=== PATIENT | male | born 1945 | race Caucasian/White ===

== ENCOUNTER 2020-06-01 11:13 | Observation (INO) | payer OTHER ==
[~2020-06-01] VITALS: Ht 172.7 cm; Wt 90.7 kg
[2020-06-01 12:08] LABS: BASOPHILS ABSOLUTE AUTO 0.02 K/mm3 (0.00-0.23); BASOPHILS PERCENT AUTO 0 % (0-2); EOSINOPHILS ABSOLUTE AUTO 0.02 K/mm3 (0.00-0.68); EOSINOPHILS PERCENT AUTO 0 % (0-6); Hematocrit 53.3 % (37.0-53.0); Hemoglobin 18.4 g/dL (13.5-17.5); IMMATURE GRAN ABSOLUTE AUTO 0.04 K/mm3 (0.00-0.10); IMMATURE GRAN PERCENT AUTO 0 % (0-1); LYMPHOCYTES ABSOLUTE AUTO 1.22 K/mm3 (0.84-5.20); LYMPHOCYTES PERCENT AUTO 10 % (21-46); MONOCYTES PERCENT AUTO 7 % (4-13); Mean Corpuscular HGB Conc 34.5 g/dL (31.5-36.5); Mean Corpuscular Volume 90 fL (80-100); Mean Platelet Volume 9.8 fL (9.1-12.4); NEUTROPHILS PERCENT AUTO 82 % (41-73); Platelet Count 222 K/mm3 (150-400); RDW Coefficient Variation 13.1 % (11.7-14.2); RDW Standard Deviation 42.7 fL (35.1-46.3); Red Blood Cell Count 5.94 M/mm3 (4.30-5.90)
[2020-06-01 12:37] LABS: Alanine Aminotransfer (ALT/SGP 33 U/L (12-78); Albumin, Blood 3.5 g/dL (3.4-5.0); Albumin/Globulin Ratio 0.9 (0.8-1.8); Alk Phos 72 U/L (50-136); Anion Gap 6 mmol/L (6-16); Aspartate Aminotrans (AST/SGOT 25 U/L (12-37); Bilirubin, Total 0.6 mg/dL (0.1-1.0); Blood Urea Nitrogen 22 mg/dL (8-24); Bun/Creatinine Ratio 21.4 (12.0-20.0); CO2, Blood 25 mmol/L (21-32); Calcium, Blood 8.9 mg/dL (8.5-10.1); Chloride, Blood 105 mmol/L (98-108); Creatinine, Blood 1.03 mg/dL (0.60-1.20); Globulin, Blood 3.9 g/dL (2.2-4.0); Glomerular Filtration Rate >60 (60-); Glucose, Blood 92 mg/dL (70-99); Potassium, Blood 4.5 mmol/L (3.5-5.5); Sodium, Blood 136 mmol/L (136-145); Total Protein, Blood 7.4 g/dL (6.4-8.2); Troponin I <0.015 ng/mL (0.000-0.040)
--- NOTE | 2020-06-01 22:38 | NUR ---
ADMISSION: PATIENT IS RECIEVED FROM ER VIA STRETCHER. SBA TO THE BED, STEADY GAIT BUT SLOW. VSS, NO COMPLIANTS OF PAIN. PATIENT IS ORIENTED TO ROOM AND CALL SIMMONS. BED ALARM IS ON FOR SAFETY.
[2020-06-02 05:38] LABS: BASOPHILS ABSOLUTE AUTO 0.02 K/mm3 (0.00-0.23); BASOPHILS PERCENT AUTO 0 % (0-2); EOSINOPHILS PERCENT AUTO 1 % (0-6); Hemoglobin 17.2 g/dL (13.5-17.5); IMMATURE GRAN ABSOLUTE AUTO 0.03 K/mm3 (0.00-0.10); IMMATURE GRAN PERCENT AUTO 0 % (0-1); LYMPHOCYTES ABSOLUTE AUTO 1.35 K/mm3 (0.84-5.20); LYMPHOCYTES PERCENT AUTO 17 % (21-46); MONOCYTES ABSOLUTE AUTO 0.85 K/mm3 (0.16-1.47); MONOCYTES PERCENT AUTO 10 % (4-13); Mean Corpuscular HGB Conc 33.7 g/dL (31.5-36.5); Mean Corpuscular Volume 89 fL (80-100); Mean Platelet Volume 10.2 fL (9.1-12.4); NEUTROPHILS ABSOLUTE AUTO 5.83 K/mm3 (1.96-9.15); NEUTROPHILS PERCENT AUTO 71 % (41-73); Platelet Count 202 K/mm3 (150-400); RDW Coefficient Variation 13.1 % (11.7-14.2); RDW Standard Deviation 42.8 fL (35.1-46.3); Red Blood Cell Count 5.74 M/mm3 (4.30-5.90); White Blood Cell Count 8.18 K/mm3 (4.00-11.30)
[2020-06-02 06:17] LABS: Anion Gap 7 mmol/L (6-16); Blood Urea Nitrogen 18 mg/dL (8-24); Bun/Creatinine Ratio 18.5 (12.0-20.0); CHOL/HDL RATIO 4.7; CO2, Blood 25 mmol/L (21-32); Calcium, Blood 8.7 mg/dL (8.5-10.1); Chloride, Blood 108 mmol/L (98-108); Cholesterol 226 mg/dL (50-200); Creatinine, Blood 0.97 mg/dL (0.60-1.20); Glomerular Filtration Rate >60 (60-); Glucose, Blood 87 mg/dL (70-99); HDL Cholesterol 48 mg/dL (>39); LDL/HDL RATIO 3.2; Low Density Lipoprotein Chol 154 mg/dL (0-110); Potassium, Blood 3.8 mmol/L (3.5-5.5); Sodium, Blood 140 mmol/L (136-145); Triglycerides 121 mg/dL (30-160); Very Low Density Lipoprot Chol 24 mg/dL (6-32)
--- NOTE | 2020-06-02 06:30 | NUR ---
SHIFT SUMMARY: A&OX4, NO CONFUSION OR FORGETFULNESS OBSERVED. VSS WITH A LOW GRADE TEMP. OF 99.1 OBSERVED. PATIENT REPORTED RIGHT TEMPORAL HEAD ACHE, 3/10 GOING UP TO 6/10 WITH COUGH. TYLENOL WAS GIVEN WITH GOOD EFFECT. LEFT HAND IT QUALITY ANALYST HAS SOME WEAKNESS. UP TO THE BATHROOM WITH SBA, STEADY GAIT OBSERVED. BED ALARM IS ON FOR SAFETY. MRI SCREENING WAS COMPLETED AND FAXED. TELETRY WAS NRS WITH A BBB WITH RATES IN THE 80'S.
--- NOTE | 2020-06-02 10:44 | NUR ---
Echocardiogram using 9.0ml of agitated saline contrast performed.
[2020-06-02] MEDS ORDERED: ASPI81CH PO (17:39)
[2020-06-02] MEDS ORDERED: Aspir 8181 MG PO (17:41)
[2020-06-02] MEDS ORDERED: ATOR40TA PO (17:42)
[2020-06-02] MEDS ORDERED: CLOP75 PO (17:43)
[2020-06-02] MEDS ORDERED: METO25ER PO (17:45)
--- NOTE | 2020-06-02 18:33 | NUR ---
DISCHARGE PT DISCHARGED TO HOME. THIS RN EXPLAINED DISCHARGE INSTRUCTIONS AND MEDICATIONS TO PT AND HE REPORTS HE UNDERSTANDS. IV REMOVED WITHOUT DIFFICULTY. BELONGINGS WITH PT. PT TRANSFERRED TO PRIVATE VEHICLE VIA WHEELCHAIR.
== END 2020-06-02 18:40 | disposition home or self-care (01) ==
LOC: ER 11:13 → MEDS 11:14 → ER 16:20 → MEDS 22:18
PROVIDERS: Emergency Medicine; Nurse Practitioner Acute Care; ADMIT Internal Medicine
DX: I63.9 Cerebral infarction, unspecified (principal); G81.94 Hemiplegia, unspecified affecting left nondominant side; I99.8 Other disorder of circulatory system; I65.21 Occlusion and stenosis of right carotid artery; E78.5 Hyperlipidemia, unspecified; J44.9 Chronic obstructive pulmonary disease, unspecified; R03.0 Elevated blood-pressure reading, without diagnosis of hypertension; F17.220 Nicotine dependence, chewing tobacco, uncomplicated; Z88.1 Allergy status to other antibiotic agents; Z88.5 Allergy status to narcotic agent
CPT/HCPCS: 36415; 70450; 70544; 70549; 71045; 72125; 80048; 80053; 80061; 84484; 85025; 92610; 93005; 93010; 93306; 97116; 97161; 99285-25; A9270; A9579; G0378

== ENCOUNTER 2020-10-28 19:34 | Inpatient (IN) | payer OTHER ==
[~2020-10-28] VITALS: Ht 182.9 cm; Wt 89.5 kg
[~2020-10-28 19:34] MED LIST: ASPI81CH PO; ATOR40TA PO; Aspir 8181 MG PO; CLOP75 PO; METO25ER PO
[2020-10-28 20:04] LABS: BASOPHILS ABSOLUTE AUTO 0.01 K/mm3 (0.00-0.23); BASOPHILS PERCENT AUTO 0 % (0-2); EOSINOPHILS PERCENT AUTO 0 % (0-6); Hematocrit 47.4 % (37.0-53.0); Hemoglobin 16.1 g/dL (13.5-17.5); IMMATURE GRAN ABSOLUTE AUTO 0.02 K/mm3 (0.00-0.10); IMMATURE GRAN PERCENT AUTO 0 % (0-1); LYMPHOCYTES ABSOLUTE AUTO 0.79 K/mm3 (0.84-5.20); LYMPHOCYTES PERCENT AUTO 16 % (21-46); MONOCYTES ABSOLUTE AUTO 0.62 K/mm3 (0.16-1.47); MONOCYTES PERCENT AUTO 12 % (4-13); Mean Corpuscular HGB 30.7 pg (26.0-34.0); Mean Corpuscular Volume 90 fL (80-100); Mean Platelet Volume 10.3 fL (9.1-12.4); NEUTROPHILS PERCENT AUTO 71 % (41-73); Platelet Count 111 K/mm3 (150-400); RDW Coefficient Variation 13.7 % (11.7-14.2); RDW Standard Deviation 45.5 fL (35.1-46.3); Red Blood Cell Count 5.25 M/mm3 (4.30-5.90); White Blood Cell Count 5.04 K/mm3 (4.00-11.30)
[2020-10-28 20:21] LABS: Alanine Aminotransfer (ALT/SGP 51 U/L (12-78); Albumin, Blood 2.8 g/dL (3.4-5.0); Albumin/Globulin Ratio 0.8 (0.8-1.8); Alk Phos 49 U/L (50-136); Anion Gap 5 mmol/L (6-16); Aspartate Aminotrans (AST/SGOT 62 U/L (12-37); Bilirubin, Total 0.5 mg/dL (0.1-1.0); Blood Urea Nitrogen 19 mg/dL (8-24); Bun/Creatinine Ratio 17.4 (12.0-20.0); CO2, Blood 24 mmol/L (21-32); Calcium, Blood 7.4 mg/dL (8.5-10.1); Chloride, Blood 104 mmol/L (98-108); Creatinine, Blood 1.09 mg/dL (0.60-1.20); Globulin, Blood 3.4 g/dL (2.2-4.0); Glomerular Filtration Rate >60 (60-); Glucose, Blood 101 mg/dL (70-99); Potassium, Blood 4.2 mmol/L (3.5-5.5); Sodium, Blood 133 mmol/L (136-145); Total Protein, Blood 6.2 g/dL (6.4-8.2)
[2020-10-28 23:26] LABS: Ferritin, Serum 244 ng/mL (26-388); Lactate Dehydrogenase (Ld),Bld 318 U/L (100-240)
--- NOTE | 2020-10-29 01:16 | NUR ---
PATIENT IS A NEW ADMIT FROM THE ED. AXOX 4 AND ONE ASSIST TRANSFER FROM [facility] TO BED. ON 3L O2 NC FROM ED AND ROOM AIR BASELINE. IV REMDESIVIR INFUSING. TEMP 98.6 DOWN FROM 101.0 IN ED. TYLENOL 1,000 MG GIVEN IN ED. PATIENT ORIENTED TO ROOM AND CALL LIGHT SYSTEM. DENIES CHEST PAIN AND N/V. REPORTS WANTING TO SLEEP AFTER ASSESSMENT COMPLETE. CALL LIGHT IN REACH.
--- NOTE | 2020-10-29 03:48 | NUR ---
SHIFT SUMMARY PATIENT HAD NO ACUTE CHANGES OBSERVED. AXOX 4 AND SBA TO BATHROOM. SOB WITH EXERTION. ON 2L O2 NC AND ROOM AIR BASELINE. DENIES CHEST PAIN AND N/V. PIV REMAINS INTACT. VSS/AFEBRILE. TAKES MEDICATION WHOLE WITH WATER. COOPERATIVE WITH CARE. CALL LIGHT IN REACH. BED IN LOWEST POSITION. WILL CONTINUE TO MONITOR UNTIL DAY SHIFT NURSE ASSUMES CARE.
[2020-10-29 04:47] LABS: BASOPHILS ABSOLUTE AUTO 0.01 K/mm3 (0.00-0.23); BASOPHILS PERCENT AUTO 0 % (0-2); EOSINOPHILS PERCENT AUTO 0 % (0-6); Hematocrit 49.8 % (37.0-53.0); Hemoglobin 16.8 g/dL (13.5-17.5); IMMATURE GRAN ABSOLUTE AUTO 0.02 K/mm3 (0.00-0.10); IMMATURE GRAN PERCENT AUTO 0 % (0-1); LYMPHOCYTES ABSOLUTE AUTO 0.49 K/mm3 (0.84-5.20); LYMPHOCYTES PERCENT AUTO 9 % (21-46); MONOCYTES ABSOLUTE AUTO 0.28 K/mm3 (0.16-1.47); MONOCYTES PERCENT AUTO 5 % (4-13); Mean Corpuscular HGB 30.5 pg (26.0-34.0); Mean Corpuscular HGB Conc 33.7 g/dL (31.5-36.5); Mean Corpuscular Volume 90 fL (80-100); Mean Platelet Volume 10.3 fL (9.1-12.4); NEUTROPHILS ABSOLUTE AUTO 4.75 K/mm3 (1.96-9.15); NEUTROPHILS PERCENT AUTO 86 % (41-73); Platelet Count 113 K/mm3 (150-400); RDW Coefficient Variation 13.7 % (11.7-14.2); RDW Standard Deviation 46.1 fL (35.1-46.3); Red Blood Cell Count 5.51 M/mm3 (4.30-5.90); White Blood Cell Count 5.55 K/mm3 (4.00-11.30)
[2020-10-29 05:07] LABS: Alanine Aminotransfer (ALT/SGP 59 U/L (12-78); Albumin, Blood 2.8 g/dL (3.4-5.0); Albumin/Globulin Ratio 0.8 (0.8-1.8); Alk Phos 50 U/L (50-136); Anion Gap 8 mmol/L (6-16); Aspartate Aminotrans (AST/SGOT 61 U/L (12-37); Bilirubin, Total 0.5 mg/dL (0.1-1.0); Blood Urea Nitrogen 20 mg/dL (8-24); CO2, Blood 23 mmol/L (21-32); Calcium, Blood 7.7 mg/dL (8.5-10.1); Chloride, Blood 103 mmol/L (98-108); Creatinine, Blood 1.11 mg/dL (0.60-1.20); Globulin, Blood 3.6 g/dL (2.2-4.0); Glomerular Filtration Rate >60 (60-); Glucose, Blood 109 mg/dL (70-99); Sodium, Blood 134 mmol/L (136-145); Total Protein, Blood 6.4 g/dL (6.4-8.2)
--- NOTE | 2020-10-29 18:06 | NUR ---
SHIFT SUMMARY PATIENT DENIES PAIN, NAUSEA, AND SHORTNESS OF BREATH AT REST. PATIENT MAINTAINING OXYGEN SATURATION ABOVE 92% ON 3L/NC. OXYGEN SATURATION DROPS WITH ACTIVITY. OCCASSIONAL COUGH. PATIENT UP TO BR SBA AND USES URINAL AT BEDSIDE. EATING AND DRINKING WELL. PLEASANT AND COOPERATIVE WITH CARE.
--- NOTE | 2020-10-30 07:27 | NUR ---
SHIFT SUMMARY PT IS A 75 Y/O FEMALE, ADMITTED FOR PNA R/T COVID-19. HE IS A&O X 4, 1PA TO THE BSC. NO C/O NAUSEA, PAIN OR SOB. HE IS ON 3L O2 VIA NC, SATTING 88-93%. VITAL SIGNS STABLE. NO ACUTE CHANGES IN PT CONDITION NOTED DURING THE NIGHT. WILL CONTINUE TO MONITOR AND TREAT PER EMAR UNTIL HAND OFF TO DAY SHIFT RN.
[2020-10-30 08:45] LABS: Anion Gap 6 mmol/L (6-16); Blood Urea Nitrogen 28 mg/dL (8-24); CO2, Blood 24 mmol/L (21-32); Calcium, Blood 7.6 mg/dL (8.5-10.1); Chloride, Blood 104 mmol/L (98-108); Glomerular Filtration Rate >60 (60-); Glucose, Blood 86 mg/dL (70-99); Potassium, Blood 4.6 mmol/L (3.5-5.5); Sodium, Blood 134 mmol/L (136-145)
[2020-10-30 09:56] LABS: BASOPHILS ABSOLUTE AUTO 0.01 K/mm3 (0.00-0.23); BASOPHILS PERCENT AUTO 0 % (0-2); EOSINOPHILS PERCENT AUTO 0 % (0-6); Hemoglobin 16.2 g/dL (13.5-17.5); IMMATURE GRAN ABSOLUTE AUTO 0.03 K/mm3 (0.00-0.10); IMMATURE GRAN PERCENT AUTO 0 % (0-1); LYMPHOCYTES ABSOLUTE AUTO 0.82 K/mm3 (0.84-5.20); LYMPHOCYTES PERCENT AUTO 11 % (21-46); MONOCYTES ABSOLUTE AUTO 0.53 K/mm3 (0.16-1.47); MONOCYTES PERCENT AUTO 7 % (4-13); Mean Corpuscular HGB 30.3 pg (26.0-34.0); Mean Corpuscular HGB Conc 33.8 g/dL (31.5-36.5); Mean Corpuscular Volume 90 fL (80-100); Mean Platelet Volume 10.6 fL (9.1-12.4); NEUTROPHILS ABSOLUTE AUTO 6.07 K/mm3 (1.96-9.15); NEUTROPHILS PERCENT AUTO 81 % (41-73); Platelet Count 127 K/mm3 (150-400); RDW Coefficient Variation 13.4 % (11.7-14.2); RDW Standard Deviation 44.6 fL (35.1-46.3); Red Blood Cell Count 5.35 M/mm3 (4.30-5.90); White Blood Cell Count 7.46 K/mm3 (4.00-11.30)
[2020-10-30 10:05] LABS: International Normalized Ratio 1.09; Prothrombin Time Results 11.7 Sec (9.7-11.5)
[2020-10-30 12:34] LABS: Hemoglobin 14.4 g/dL (13.5-17.5)
[2020-10-30 12:47] LABS: Troponin I 0.028 ng/mL (0.000-0.040)
[2020-10-30 12:51] LABS: Bun/Creatinine Ratio 29.3 (12.0-20.0); Creatinine, Blood 1.4 mg/dL (0.60-1.20); Magnesium, Blood 1.9 mg/dL (1.6-2.4); Potassium, Blood 4.8 mmol/L (3.5-5.5)
[2020-10-30 15:58] LABS: Hematocrit 36.7 % (37.0-53.0); Hemoglobin 12.1 g/dL (13.5-17.5)
--- NOTE | 2020-10-30 18:01 | NUR ---
SHIFT SUMMARY PATIENT HAD EPISODE OF HEMATEMESIS THIS MORNING, BRIGHT RED WITH CLOTS. CALL TO DR CORDON INFORM. NEW ORDER FOR ZOFRAN. PATIENT SET OFF BED ALARM IN ATTEMPT TO GET TO BR WITHOUT ASSISTANCE. PATIENT FOUND LYING ON FLOOR. PATIENT HAD EPISODE OF SIZURE LIKE ACTIVITY WHILE ON FLOOR. OUTCOMES MANAGER INITIATED. PATIENT RETURNED TO BED VIA APARNA. PATIENT FOUND TO BE HYPOTENSIVE. SEVERAL BOLUSES ORDERED TO EQUAL 3L PATIENT CONTINUED TO BE HYPOTENSIVE. DR. LANGFORD CONSULTED. PATIENT TO HAVE EGD TODAY. PATIENT LOC CONTINUES TO DECLINE. TRANSFER TO ICU ORDERED.
--- NOTE | 2020-10-30 19:00 | NUR ---
PT ARRIVAL ON UNIT... PT ARRIVED ON UNIT VIA HIS BED, PT LOOKS SLEEPY BUT FOLLOWS DIRECTIONS. PT WAS MOVED OVER TO THE ICU BED BY 4 STAFF. PT WAS ABLE TO FOLLOW DIRECTIONS. PT IS ON 4L NC WITH O2 SATS AT 88-89%, PT'S O2 SATS WERE INCREASED TO 5L O2. L/S DIM AND COARSE T/O. BT PRESENT AND HYPOACTIVE. PT WAS BROUGHT DOWN TO THE ICU D/T DECREASED MENTAL STATUS AND CONTINUED EMISIS OF TARAH RED BLOOD AND CLOTS PER MED FLOOR RN REPORT. PT DENIES ANY CHEST PAIN AT THIS TIME. PT HAS A HARSH, NONPRODUCTIVE COUGH AT THIS TIME. AN ABG WAS OBTAINED BY RT. IV KEPPRA WAS STARTED PER ORDERS. PT'S SKIN IS COOL AND CLAMMY. NO EDEMA NOTED ON ASSESSMENT. PT'S BP IS CURRENTLY STABLE WITH MAPS >70 AT THIS TIME. PROTONIX GTT WAS RESTARTED. LEVOPHED GTT IS ON STAND BY AT THIS TIME. WILL CONTINUE TO MONITOR.
[2020-10-30 19:01] LABS: pH Blood Arterial 7.38 (7.35-7.45)
--- NOTE | 2020-10-30 19:08 | NUR ---
CALL TO FAMILY MESSAGE LEFT FOR SIGNIFICANT OTHER TO CALL BACK FOR UPDATE ON PATIENT STATUS ON NUMBER PROVIDED BY PATIENT. HOME NUMBER LISTED IN PATIENT CONTACTS DISCONNECTED.
--- NOTE | 2020-10-30 19:45 | NUR ---
10/30/201944 Gerda Godinez History, Chart, Medications and Allergies reviewed before start of procedure. Patient confirms NPO status and agrees with scheduled surgery. 3-LEAD EKG REVIEWED WITH PHYSICIAN PRIOR TO START OF PROCEDURE. MONITOR INTACT WITH CONTINUOUS PULSE OXIMETRY AND INTERMITTENT BP. CARE BY FOR MAC SEDATION. SEE PAPER ANESTHESIA RECORD.
--- NOTE | 2020-10-30 19:46 | NUR ---
PT UPDATE... DR. LANGFORD AT THE BEDSIDE FOR CONSENT AND EDG. PT SIGNED CONSENT WITH THIS RN A WITNESS. EDG WAS DONE IN THE ROOM, PER DR. LANGFORD THE PT HAS A LARGE ULCERATED AREA VS CANCER. PT CAN HAVE SOME SIPS OF WATER AND ICE CHIPS, PT IS TO STAY ON THE PROTONIX GTT AND PRESSORS NEEDED. REPORT GIVEN TO ZOFIA SANCHEZ.
--- NOTE | 2020-10-30 20:45 | NUR ---
POST ENDOSCOPIC PROCEDURE, PT IS AWAKE, ALERT & ORIENTED X2. PT IS UNAWARE OF WHAT BROUGHT HIM TO THE ICU OR WHAT PROCEDURE WAS DONE. WAS AT THE BEDSIDE TO EXPLAIN FINDINGS, PT WAS EDUCATED ON PROCEDURE AT THIS TIME. PT UP TO BSC, LARGE BLACK/RED STOOL NOTED, PT TOLERATED TRANSFER WNL, PT ASSISTED BACK INTO BED, VSS AT THIS TIME, 6 L O2 VIA NC, RESP UNLABORED. PROTONIX GTT INFUSING, PT DENIES ANY PAIN, CALL LIGHT IN REACH.
[2020-10-30 22:22] LABS: Hematocrit 36.5 % (37.0-53.0)
[2020-10-31 04:14] LABS: Hematocrit 33.7 % (37.0-53.0); Hemoglobin 11.2 g/dL (13.5-17.5)
--- NOTE | 2020-10-31 04:51 | NUR ---
ATTEMPTED TO PRONE PT AT THIS TIME. HE WAS UNABLE TO TOLERATE TURNING ALL THE WAY TO HIS STOMACH DUE TO LINES/IMMOBILITY. PT IS ON HIS RIGHT SIDE INSTEAD OF FAVORING HIS LEFT. HE WAS SWITCHED FROM THE NON-REBREATHER MASK TO A NC @ 7L, SPO2 REMAINS >93% AT THIS TIME. WCTM. CALL LIGHT IN REACH.
--- NOTE | 2020-10-31 06:29 | NUR ---
SUMMARY PT REMAINS A&O X2. HE IS HAVING INTERMITTENT PERIODS OF CONFUSION. PT IS CURRENTLY ON 7L O2 VIA NC, SPO2 90-94%, PT ATTEMPTS TO REMOVE OXYGEN & MONITORS WHILE CONFUSED. PROTONIX GTT INFUSING @ 10 ML/HR, NS @ 50 ML/HR. BLACK/DARK RED STOOL NOTED THROUGH THE NIGHT, NO TARAH BLOOD NOTED. PT HAS BEEN INCONTINENT, ATTENDS CHANGED PRN. PT CONTINUES TO DENY PAIN. PT ATTEMTED TO USE URINAL ON OCCASION WHILE ALERT. BED ALARM IS ON FOR SAFETY. PT HAS USED CALL LIGHT A FEW TIMES, REMAINS WITHIN REACH. WCTM & REPORT TO DAY RN.
[2020-10-31 10:13] LABS: Hemoglobin 11.4 g/dL (13.5-17.5)
[2020-10-31 10:15] LABS: Hematocrit 34.1 % (37.0-53.0)
--- NOTE | 2020-10-31 10:16 | NUR ---
AM NOTE.... ASSUMED CARE OF PT AT 0700, PT IS A&Ox3 WITH TIMES OF CONFUSION. PT IS COVID + WITH AN UPPER GI BLEED FROM AN ULCER VS MALIGNANCY. PT WAS ON 7L NC WITH 13L NON-REBREATHER DURING THE TIMES HIS O2 SATS DECREASE WITH ACTIVITY. L/S COARSE AND DIM T/O BEING VERY DIM IN THE BASES. PT IS IN SR W/BBB IN THE 70'S, PT'S BP HAS BEEN SOFT WITH SBPs IN THE 80'S-90'S WITH MAPS >60. NO EDEMA NOTED ON ASSESSMENT. BT PRESENT AND HYPERACTIVE, ABD IS SOFT AND NONTENDER TO PALP, PT HAS BEEN HAVING INCONT BLACK/MAROON STOOLS. PT HAS ALSO BEEN INCONT OF URINE. UPON AM ASSESSMENT THE PT'S O2 SATS KEPT DROPPING TO 86-89% RT WAS CALLED AN THE PT WAS PLACED ON THE AIRVO AT 40L AND 55% THIS BROUGHT HIS O2 SATS UP TO >90%. AT 0945 THE PT ATTEMPTED TO GET OUT OF BED AND HIS O2 SATS WENT FROM 94-95% TO 82%, PT'S AIRVO WAS INCREASED FROM 40L AND 55% TO 40L AND 65% TO KEEP O2 SATS >90%. PT HAD AN EPISODE OF URINARY INCONT, PT WAS HELPFUL WITH TURNS BUT HIS O2 SATS STARTED TO DROP WITH ANY TYPE OF MOVEMENT. WILL CONTINUE TO MONITOR.
[2020-10-31 10:56] LABS: Anion Gap 5 mmol/L (6-16); Blood Urea Nitrogen 47 mg/dL (8-24); CO2, Blood 25 mmol/L (21-32); Calcium, Blood 6.6 mg/dL (8.5-10.1); Chloride, Blood 112 mmol/L (98-108); Creatinine, Blood 1.12 mg/dL (0.60-1.20); Glomerular Filtration Rate >60 (60-); Glucose, Blood 98 mg/dL (70-99); Potassium, Blood 4.7 mmol/L (3.5-5.5); Sodium, Blood 142 mmol/L (136-145)
--- NOTE | 2020-10-31 14:03 | NUR ---
PT UPDATE... PT'S BP CONTINUES TO BE SOFT AND TRENDING DOWN, DR. MILNER AND DR. Milner WERE CALLEED AND NOTIFIED OF THE PT'S CONTINUED HYPOTENSION. DR. MILNER AND DR. Milner ASKED FOR AN BODY TRIMMER UPHOLSTERER CONSULT. DR. GARCIA WAS NOTIFIED BY THIS RN. DR. RUIZ AT THE BEDSIDE FOR ASSESMENT, A 1000 MLS BOLUS OF NS WAS ORDERED AND STARTED BY THIS RN. PER DR. GARCIA AN ORDER FOR A PICC LINE WAS PLACED. PT HAS BEEN MOSTLY INCONT OF URINE THIS SHIFT BUT HAS BEEN ABLE TO USE THE URINAL 2 TIMES THIS SHIFT SO FAR. PT CONTINUES TO BE ON THE AIRVO AT 40L AND 72% WITH O2 SATS AT 94%. THE PUBLIC WELFARE DIRECTOR IS AT THE BEDSIDE FOR AN EEG D/T POSSIBLE SEIZURE LIKE ACTIVITY. WILL CONTINUE TO MONITOR.
[2020-10-31 16:10] LABS: Hematocrit 34.7 % (37.0-53.0); Hemoglobin 11.4 g/dL (13.5-17.5)
[2020-10-31 18:10] LABS: Magnesium, Blood 1.9 mg/dL (1.6-2.4); Phosphorus, Blood 2.2 mg/dL (2.5-4.9); Potassium, Blood 4.6 mmol/L (3.5-5.5)
--- NOTE | 2020-10-31 18:47 | NUR ---
SHIFT SUMMARY... NO ACUTE NEGATIVE CHANGES SINCE PREVIOUS NOTE. A PICC LINE WAS PLACED THIS AFTERNOON. PT GOT A 100MLS BOLUS OF NS WHICH IMPROVED HIS BP. PT HAS DENIED ANY N/V THIS SHIFT AND PT HAS NOT HAD ANOTHER BM SINCE 0700 THIS AM. PT HAS BEEN SIPPING WATER T/O THE SHIFT AND TOLERATING THIS WELL. PT HAS BEEN BETTER WITH USING THE URINAL THIS AFTERNOON WITH LESS INCONT EPISODES. PT'S EEG WAS DONE IN THE ROOM, RESULTS PENDING. PT HAS BEEN REFUSING TO TURN WHILE IN THE BED, PT EDUCATED ON THE RISK OF SKIN BREAKDOWN AND PRESSURE ULCERS, PT STATED HIS UNDERSTANDING BUT STILL REFUSED ALL SHIFT. PT'S UPDATED ON THE PT'S CONDITION AND PLAN OF CARE. PT'S AIRVO SETTINGS ARE 40L AND 80% FIO2 WITH O2 SATS >90%, PT CONTINUES TO DESAT WITH ANY MOVEMENT. CALL LIGHT IN REACH WILL CONTINUE TO MONITOR UNTIL REPORT IS GIVEN TO ONCOMING RN.
--- NOTE | 2020-10-31 19:38 | NUR ---
ASSESSMENT/ASSUMED CARE PATIENT LYING IN BED TALKING ON CELL PHONE. ANSWERS QUESTIONS APPROPRIATELY AND DENIES PAIN. DISCUSSED PRONING AND IMPORTANCE OF POSITION CHANGES WITH PATIENT. PATIENT QUESTIONS WHY POSITION CHANGES AND PRONING ARE NEEDED. EDUCATED PATIENT ON DAIGNOSIS OF COVID. PATIENT AGREEABLE TO CHANGING POSITION TO RIGHT SIDE LYING. PATIENT ON AIRVO AT 40L 80% WITH SPO2 >90%, BUT DESATURATES TO 88% WITH ACTIVITY THAT RESOLVES WITH REST. LUNGS ARE CLEAR EXCEPT DIM IN THE BASES WITH PRODUCTIVE COUGH. PICC LINE PATENT AND INFUSING, 18G IN LT FA FLUSHED AND SALINE LOCKED. 20G IN RT WRIST REMOVED AFTER PAINFUL SENSATION WITH SALINE FLUSH; CATHETER IN TACT AND COBAND/GAUZE DRESSING PLACED OVER SITE. CALL LIGHT EXPLAINED TO PATIENT & IN REACH; BEDSIDE TABLE IN REACH.
[2020-10-31 22:33] LABS: Hematocrit 29.2 % (37.0-53.0)
--- NOTE | 2020-11-01 03:11 | NUR ---
V-TACH PT SLEEPING ON LEFT SIDE, HAD RUN OF VTACH UNTIL TURNED PT TO BACK. PT STATES,"YOUR NOT GOING TO LET ME SLEEP TONIGHT ARE YOU?" EXPLAINED THAT PT HAD A RUN OF VTACH. PT STATES,"I DIDN'T FEEL ANYTHING". PT WAS LYING ON LEFT SIDE WITH ARM TIGHTLY CROSSED TO CHEST. PT NOW SINUS IN THE 70'S AFTER REPOSITIONING.
[2020-11-01 03:45] LABS: BASOPHILS PERCENT AUTO 0 % (0-2); EOSINOPHILS PERCENT AUTO 0 % (0-6); Hematocrit 28.4 % (37.0-53.0); Hemoglobin 9.7 g/dL (13.5-17.5); IMMATURE GRAN ABSOLUTE AUTO 0.02 K/mm3 (0.00-0.10); IMMATURE GRAN PERCENT AUTO 0 % (0-1); LYMPHOCYTES ABSOLUTE AUTO 0.59 K/mm3 (0.84-5.20); LYMPHOCYTES PERCENT AUTO 12 % (21-46); MONOCYTES ABSOLUTE AUTO 0.33 K/mm3 (0.16-1.47); MONOCYTES PERCENT AUTO 7 % (4-13); Mean Corpuscular HGB 30.7 pg (26.0-34.0); Mean Corpuscular HGB Conc 34.2 g/dL (31.5-36.5); Mean Corpuscular Volume 90 fL (80-100); Mean Platelet Volume 10.8 fL (9.1-12.4); NEUTROPHILS ABSOLUTE AUTO 4.14 K/mm3 (1.96-9.15); NEUTROPHILS PERCENT AUTO 82 % (41-73); Platelet Count 118 K/mm3 (150-400); RDW Coefficient Variation 13.5 % (11.7-14.2); RDW Standard Deviation 44.5 fL (35.1-46.3); Red Blood Cell Count 3.16 M/mm3 (4.30-5.90); White Blood Cell Count 5.08 K/mm3 (4.00-11.30)
[2020-11-01 04:14] LABS: Anion Gap 5 mmol/L (6-16); Blood Urea Nitrogen 30 mg/dL (8-24); Bun/Creatinine Ratio 35.3 (12.0-20.0); CO2, Blood 24 mmol/L (21-32); Calcium, Blood 6.7 mg/dL (8.5-10.1); Chloride, Blood 111 mmol/L (98-108); Creatinine, Blood 0.85 mg/dL (0.60-1.20); Glomerular Filtration Rate >60 (60-); Glucose, Blood 105 mg/dL (70-99); Sodium, Blood 140 mmol/L (136-145)
[2020-11-01 04:15] LABS: Magnesium, Blood 1.9 mg/dL (1.6-2.4); Phosphorus, Blood 2.9 mg/dL (2.5-4.9)
--- NOTE | 2020-11-01 06:11 | NUR ---
SHIFT SUMMARY PATIENT REMAINED CALM AND COOPERATIVE THROUGHOUT SHIFT. ENCOURAGED FREQUENT REPOSITIONING TO SIDE LYING THAT THE PATIENT WAS AGREEABLE TO; DECLINED PRONING AT THIS TIME. INCREASED OXYGEN NEED THROUGHOUT THE NIGHT; STARTED ON AIRVO 40L 80% THEN INCREASED TO 60L 80% D/T CONSISTENT OXYGEN DESATURATION INTO THE 80'S. PATIENT USED BEDSIDE URINAL FREQUENTLY AND NOTIFIED NURSE WHEN FULL WITH TWO EPISODES OF INCONTINENCE. PATIENT HAD A RUN OF VTACH THAT RESOLVED WHEN TURNED FROM LT SIDE LYING TO OPENED CHEST. REPORTED TO DR. GARCIA; PORTABLE CHEST XR OBTAINED TO CONFIRM PICC PLACEMENT. RT WRIST AND LT FOREARM PERIPHERAL IV'S REMOVED; NOT NEEDED. WILL CONTINUE TO MONITOR UNTIL REPORT GIVEN TO ONCOMING RN.
--- NOTE | 2020-11-01 07:15 | NUR ---
Assumed care of pt at 0700. Report received from Kim SANCHEZ and Yeni RN. Pt lethargic, sleeping. Pt on AirVO with 60 LPM flow. Initially 80% FiO2, but RT stated he decreased it to 65%. SpO2 90% or greater. RR 17. Reportedly, pt refusing proning but allows deep turn repositioning. Currently laying on L side. HR 74, BP stable. Urinal at bedside for pt to void independently. Bed in lowest position. Call light in reach. Pt denies need at this time.
--- NOTE | 2020-11-01 17:07 | NUR ---
SUMMARY At this time, pt is receiving oxygen with AirVO with 60 LPM and 60% FiO2. SpO2 9O% or greater. Pt has had labile oxygen requirements. Desautrates when using urinal or eating/drinking. No BM this shift. SR per monitor. BP stable. Bed in lowest position. Call light in reach. Will continue to closely monitor until care handoff and bedside report with oncoming RN.
--- NOTE | 2020-11-01 21:27 | NUR ---
ASSUMED CARE PATIENT LYING IN BED TALKING ON CELL PHONE TO . BED SIDE TABLE IS WITHIN REACH WITH URINAL AND PERSONAL BELONGINGS. PATIENT APPEARS CALM. PICC LINE INFUSING NS AND PROTONIX WITH 11CM EXPOSED. CHG DRESSING CLEAN, DRY, AND INTACT. PATIENT REPORTS DISCOMFORT AT THE SITE WHEN PRESSURE IS APPLIED. PATIENT REPORTS RLQ PAIN THAT IS CONSTANT AND SHARP, WORSE AFTER EATING RATED AT A 4/10, BUT DENIES NAUSEA/VOMITING/DIARRHEA. DR. GARCIA NOTIFIED OF PAIN AND ORDERS PROVIDED. PATIENT REFUSED TURNING STATING THAT HE WAS COMFORTABLE AT THIS TIME. AIRVO IN PLACE AT 60LPM AND 92%. QUESTIONS REGARDING CAUSE OF RLQ PAIN AND CURRENT PLAN OF CARE ANSWERED WITH PATIENT CONFIRMING UNDERSTANDING.
--- NOTE | 2020-11-02 00:25 | NUR ---
HIGH FLOW O2 RT DECREASED O2 TO 65 LITERS 85%. PT SLEEPING
[2020-11-02 04:09] LABS: BASOPHILS PERCENT AUTO 0 % (0-2); EOSINOPHILS PERCENT AUTO 0 % (0-6); Hemoglobin 9.3 g/dL (13.5-17.5); IMMATURE GRAN ABSOLUTE AUTO 0.02 K/mm3 (0.00-0.10); IMMATURE GRAN PERCENT AUTO 1 % (0-1); LYMPHOCYTES PERCENT AUTO 10 % (21-46); MONOCYTES ABSOLUTE AUTO 0.32 K/mm3 (0.16-1.47); MONOCYTES PERCENT AUTO 8 % (4-13); Mean Corpuscular HGB 30.5 pg (26.0-34.0); Mean Corpuscular HGB Conc 34.4 g/dL (31.5-36.5); Mean Corpuscular Volume 89 fL (80-100); Mean Platelet Volume 10.5 fL (9.1-12.4); NEUTROPHILS ABSOLUTE AUTO 3.13 K/mm3 (1.96-9.15); NEUTROPHILS PERCENT AUTO 81 % (41-73); Platelet Count 135 K/mm3 (150-400); RDW Coefficient Variation 13.3 % (11.7-14.2); RDW Standard Deviation 43.6 fL (35.1-46.3); Red Blood Cell Count 3.05 M/mm3 (4.30-5.90); White Blood Cell Count 3.87 K/mm3 (4.00-11.30)
[2020-11-02 04:24] LABS: Anion Gap 4 mmol/L (6-16); Blood Urea Nitrogen 22 mg/dL (8-24); Bun/Creatinine Ratio 26.9 (12.0-20.0); CO2, Blood 28 mmol/L (21-32); Calcium, Blood 7.2 mg/dL (8.5-10.1); Chloride, Blood 108 mmol/L (98-108); Creatinine, Blood 0.82 mg/dL (0.60-1.20); Glomerular Filtration Rate >60 (60-); Glucose, Blood 121 mg/dL (70-99); Magnesium, Blood 1.9 mg/dL (1.6-2.4); Phosphorus, Blood 2.7 mg/dL (2.5-4.9); Potassium, Blood 4.2 mmol/L (3.5-5.5); Sodium, Blood 140 mmol/L (136-145)
--- NOTE | 2020-11-02 06:20 | NUR ---
SHIFT SUMMARY PATIENT SLEPT THROUGH MOST OF SHIFT AND REPOSITIONED SELF FREQUENTLY. ENCOURAGED SIDE TO SIDE REPOSITIONING D/T PATIENT UNABLE TO PRONE. PATIENT BEGAN DESATTING; CHANGED FROM AIRVO TO V60 HIGH FLOW, SET AT 65L 100% AT HIGHEST, NOW TITRATED DOWN TO 60L 75% TOLERATING WELL WITH SPO2 >90%. PATIENT DESATS WITH EXERTION, REPOSITIONING, TALKING WHICH HE TAKES A PROLONGED AMOUNT OF TIME TO RECOVER. PATIENT MADE APPROPRIATE USE OF CALL LIGHT TO EMPTY URINAL KEPT AT BEDSIDE; ONE EPISODE OF MISSED URINAL OCCURED. PATIENT REMAINED ORIENTED BUT DROWSY, EASILY AROUSABLE FROM SLEEP. PATIENT DENIED NAUSEA, BUT NEWLY REPORTED RLQ PAIN; CONSTANT/SHARP WORSE AFTER MEALS. REPORTED TO DR. GARCIA AND ORDERS OBTAINED FOR FENTANYL IV PRN PAIN. PATIENT DECLINED MEDICATION AT THAT TIME; ORDER STILL ON FILE. WILL CONTINUE TO MONITOR UNTIL REPORT GIVEN TO ONCOMING MEENAFT RN.
--- NOTE | 2020-11-02 07:32 | NUR ---
Assumed care of pt at 0700. report received from Kim SANCHEZ. Pt is A&O x 4. Answers questions. Follows commands. Verbalizes needs. Pleasant and cooperative with care. However lethargic and withdrawn. Sleeps often. Noted that pt's oxygen requirements are improved when pt is sleeping. Initially on V60 high flow therapy with 60 LPM flow and 75% FiO2. SpO2 99%. FiO2 decreased to 65%. SpO2 is 98%. RR 15. SR per monitor, BBB noted. BP stable. Bed in lowest position. Call light in reach. Pt denies need at this time.
--- NOTE | 2020-11-02 13:29 | NUR ---
Update: Pt switched to BiPAP as he was no longer maintaining SpO2 90% or greater with V60 HFT 60 LPM and 100% FiO2. Settings 12/6 and 100% FiO2 helped pt's sats recover. For lunch, pt assisted to sit up in chair. Pt tolerated this activity well with BiPAP on. Trialed switch back to HFT, but pt could not keep SpO2 90% or greater after 5 minutes. Therefore, pt was not able to eat lunch today. Pt remains in chair at this time. BiPAP settings 10/5 and 50% FiO2. SpO2 90% or greater.
--- NOTE | 2020-11-02 18:37 | NUR ---
SUMMARY At this time, pt is wearing V60 HFT cannula in his mouth. 60 LPM and 100% FiO2. Pt is maintaining sats well with cannula in his mouth, where he was not when it was in his nares. Pt states he feels his nose is stuffy. Pt OOB to chair for a few hours today. Tolerates OOB activity well. Voiding into urinal. SR per monitor. BP stable. Will continue to closely monitor until care handoff and bedside report with oncoming RN.
--- NOTE | 2020-11-02 20:05 | NUR ---
SHIFT ASSESSMENT ASSUMED CARE OF PT @ 1900. REPORT RECEIVED FROM VICKIE. PT A&OX4. DURING SHIFT CHANGE, PTS SATS DECREASING TO HIGH 80'S c HI-BERNARDINO NC IN MOUTH DUE TO NOSE BEING CLOGGED. RT NOTIFIED, TRANSITIONED PT TO BIPAP, 03/13 @ 70% c O2 SATS >90%. PT TOLERATING BIPAP WELL AT THIS TIME. PT LETHARGIC, WITHDRAWN, APPEARS DEPRESSED. FOLLOWING COMMANDS, SEPULVEDA. TURNING SELF IN BED, WILL NOT PRONE, SEEMS TO BE FRUSTRATED WITH NURSES INFORMING HIM OF THE IMPORTANCE OF TURNS/ PRONING. DENIES ASSISTANCE FROM NURSE FOR POSITIONING, STATES HE JUST NEEDS TO SLEEP. URINAL ON EACH SIDE OF PT BED WITHIN REACH, PT NOTIFIES STAFF WHEN THEY NEED EMPTIED. CALL LIGHT IN REACH, PT DENIES NEEDS AT THIS TIME.
[2020-11-03 03:41] LABS: BASOPHILS PERCENT AUTO 0 % (0-2); EOSINOPHILS PERCENT AUTO 0 % (0-6); Hemoglobin 9.9 g/dL (13.5-17.5); IMMATURE GRAN ABSOLUTE AUTO 0.03 K/mm3 (0.00-0.10); IMMATURE GRAN PERCENT AUTO 1 % (0-1); LYMPHOCYTES PERCENT AUTO 7 % (21-46); MONOCYTES ABSOLUTE AUTO 0.53 K/mm3 (0.16-1.47); MONOCYTES PERCENT AUTO 9 % (4-13); Mean Corpuscular HGB 30.5 pg (26.0-34.0); Mean Corpuscular HGB Conc 34.1 g/dL (31.5-36.5); Mean Corpuscular Volume 89 fL (80-100); Mean Platelet Volume 10.8 fL (9.1-12.4); NEUTROPHILS ABSOLUTE AUTO 4.98 K/mm3 (1.96-9.15); NEUTROPHILS PERCENT AUTO 84 % (41-73); Platelet Count 171 K/mm3 (150-400); RDW Coefficient Variation 13.1 % (11.7-14.2); RDW Standard Deviation 42.8 fL (35.1-46.3); Red Blood Cell Count 3.25 M/mm3 (4.30-5.90); White Blood Cell Count 5.94 K/mm3 (4.00-11.30)
[2020-11-03 03:59] LABS: Albumin, Blood 2.2 g/dL (3.4-5.0); Anion Gap 3 mmol/L (6-16); Blood Urea Nitrogen 19 mg/dL (8-24); Bun/Creatinine Ratio 23.9 (12.0-20.0); CO2, Blood 28 mmol/L (21-32); Calcium, Blood 7.5 mg/dL (8.5-10.1); Chloride, Blood 107 mmol/L (98-108); Creatinine, Blood 0.79 mg/dL (0.60-1.20); Glomerular Filtration Rate >60 (60-); Glucose, Blood 113 mg/dL (70-99); Phosphorus, Blood 2.4 mg/dL (2.5-4.9); Potassium, Blood 4.2 mmol/L (3.5-5.5); Sodium, Blood 138 mmol/L (136-145)
--- NOTE | 2020-11-03 06:57 | NUR ---
SHIFT SUMMARY PT REMAINS A&OX4, BECAME MORE OUTGOING DURING THE NIGHT BUT C/O DIFFICULTY SLEEPING, SEEMED ANXIOUS. MEDICATED c PRN ATIVAN, PT CURRENTLY RESTING WELL. TOLERATING BIPAP AT THIS TIME. BIPAP-12/8-65% c O2 SATS >90%. PT GIVEN SMALL BREAKS T/O THE NIGHT BUT BECAME SOB RATHER QUICKLY. PT REPOSITIONING SELF, TURNING HARD LEFT/ RIGHT. CONTINUES TO USE URINAL. NO BM THIS SHIFT. CALL LIGHT WITHIN REACH.
--- NOTE | 2020-11-03 09:15 | NUR ---
INITIAL ASSESSMENT PATIENT RESTING WITH EYES CLOSED UPON ENTERING ROOM. PATIENT SLOW TO RESPOND. PATIENT APPEARS LETHARGIC. PATIENT ABLE TO ANSWER ALL ORIENTATION QUESTIONS CORRECTLY, HOWEVER WHEN PATIENT MAKES CONFUSED STATEMENTS AT TIMES, SUCH WHEN NURSE ASKED PATIENT TO BREATH IN THROUGH NOSE AND BREATH OUT THROUGH MOUTH AND PATIENT ANSWERED "HOW DO I KNOW WHICH IS WHICH". PATIENT CALM, COOPERATIVE, FLAT, WITHDRAWN AND DEPRESSED APPEARING. PATIENT AFEBRILE. PATIENT DENIES PAIN. PATIENT WEAK BUT ABLE TO MOVE ALL EXTREMITIES. PATIENT ON BIPAP AT 15/8 AND 65% FIO2. PATIENT TRIALED ON AIRVO AT 60 L AND 100% FIO2, BUT DESATTED DOWN TO 77%. PATIENT STATED THAT NOSE IS A LITTLE CONGESTED, AND WHEN PRONGS PLACED IN MOUTH, PATIENT WOULD BITE DOWN ON. LUNGS DIMINISHED THROUGHOUT. SOB NOTED WITH EXERTION. NONPRODUCTIVE COUGH NOTED. PATIENT IN SR WITH BBB, HR 60S TO 70S. SBP IN THE 90S. NO ACTIVE GI BLEEDING NOTED. LAST BM ON 10/31. PATIENT ON FULL LIQUID DIET BUT UNABLE TO EAT BREAKFAST HAD TO BE PLACED BACK ON BIPAP FOR O2 SATS. PATIENT OCCASIONALLY INCONTINENT. URINAL AT BEDSIDE X 2. SCATTERED BRUISES NOTED. ABRASION NOTED TO R KNEE. PROTONIX INFUSING AT 10 MLS/ HOUR. NS TKO. PATIENT RECEIVING 20 MM SODIUM PHOS FOR PHOS OF 2.4 THIS AM. BED LOW, CALL LIGHT IN REACH. WILL CONTINUE TO MONITOR PATIENT FREQUENTLY THROUGHOUT SHIFT.
--- NOTE | 2020-11-03 11:04 | NUR ---
DR. HERNANDEZ UPDATED ON PATIENT. INFORMED THAT PATIENT WITHDRAWN AND DEPRESSED APPEARING THIS AM. INFORMED THAT PATIENT STATED "THERE ARE THINGS I NEED TO GET DONE AT HOME AND MY CAN'T DRIVE". INFORMED THAT PATIENT PLACED ON AIRVO THIS AM AND THAT SATS DECREASED DOWN TO 77% ON 60 L AND 100% FIO2. INFORMED THAT PATIENT NOT BREATHING IN THROUGH NOSE WHEN INSTRUCTED. PATIENT STATED HIS NOSE WAS "A LITTLE CONGESTED". AIRVO PLACED IN PATIENT'S MOUTH. PATIENT CONTINUED TO BITE DOWN ON EVEN WHEN INSTRUCTED NOT TO. INFORMED THAT PATIENT UNABLE TO EAT BREAKFAST BECAUSE HAD TO GO BACK ON BIPAP. NO ORDERS RECEIVED AT THIS TIME.
--- NOTE | 2020-11-03 12:00 | NUR ---
PATIENT AFEBRILE. NEURO STATUS REMAINS UNCHANGED. PATIENT 1 TO 2 PERSON ASSIST TO CHAIR. PATIENT WATCHING TV. PATIENT SATTING 90% AND GREATER ON AIRVO AT 60 L AND 90% FIO2. HR 80S TO 90S. SBP 130S TO 140S. NO OTHER ACUTE CHANGES TO NOTE ON AT THIS TIME. WILL CONTINUE TO MONITOR.
--- NOTE | 2020-11-03 17:00 | NUR ---
PATIENT NOW ON REGULAR DIET PER DR. LANGFORD. HR 70S TO 80S. SBP LOW 100S TO 130S. NO OTHER ACUTE CHANGES TO NOTE ON AT THIS TIME. WILL CONTINUE TO MONITOR.
--- NOTE | 2020-11-03 19:18 | NUR ---
SHIFT SUMMARY PATIENT REMAINED ALERT AND ORIENTED, AFEBRILE. PATIENT HAD NO COMPLAINTS OF PAIN. PATIENT WEAK BUT ABLE TO AMBULATE TO CHAIR WITH 1 TO 2 PERSON ASSIST. PATIENT WITHDRAWN AND DEPRESSED THIS AM. PATIENT HAS REMAINED FLAT BUT DOES SEEM TO HAVE SOME IMPROVEMENT IN MOOD. PATIENT ON EITHER BIPAP 12/8 AND FIO2 60 TO 65% OR AIRVO AT 60 L AND 90 TO 100% FIO2. PATIENT NEEDS TO BE REMINDED TO BREATH THROUGH NOSE WHEN ON AIRVO. LUNGS REMAINED DIMINISHED. PATIENT REMAINED SOB WITH EXERTION. PATIENT WOULD DESAT DOWN TO 70S WHEN NOT BREATHING THROUGH NOSE ON AIRVO. PATIENT REMAINED SR WITH BBB, HR 60S TO 90S. SBP 90S TO 140S. NO GI BLEEDING NOTED THIS SHIFT. NO BM THIS SHIFT. DR. LANGFORD INCREASED DIET TO REGULAR. 2050 MLS OUT WITH URINAL. PATIENT DID FUMBLE WITH URINAL AND SPILL AT TIMES. NO CHANGES TO SKIN. PATIENT HAD COMPLETE BED BATH. PATIENT CONTINUED TO SHIFT OWN HIPS. PROTONIX AND NS REMAIN INFUSING. SCDS IN PLACE. PATIENT RECEIVED 20 MM SODIUM PHOS THIS AM TO REPLACE AM PHOS OF 2.4. BED LOW. REPORT GIVEN TO ASSUMING TEACHER OF THE SIGHT IMPAIRED NURSE.
--- NOTE | 2020-11-03 19:45 | NUR ---
SHIFT ASSESSMENT ASSUMED CARE OF PT @ 1900. REPORT RECEIVED FROM DANIEL LIU. PT A&OX4, SITTING UPRIGHT IN BED, JUST FINISHED DINNER. PT SEEMS TO BE LESS DEPRESSED THAN YESTERDAY, BUT STILL WITHDRAWN. PT C/O SOB, UNABLE TO BREATH WELL THROUGH NOSTRILS, 02 SATS DIPPING INTO THE MID 80'S. PT PLACED ON BIPAP, 03/13 @ 100% c O2 SATS QUICKLY CLIMBING TO 99%. FI02 TITRATED DOWN TO 65% c O2 SATS >90%. NS @ 50ML/HR AND PROTONIX @ 10ML/HR INFUSING IN JD PG. TWO URINALS AT BEDSIDE WITHIN PT REACH. PT TURNING SELF IN BED, CALL LIGHT WITHIN REACH.
[2020-11-04 04:08] LABS: BASOPHILS ABSOLUTE AUTO 0.01 K/mm3 (0.00-0.23); BASOPHILS PERCENT AUTO 0 % (0-2); EOSINOPHILS PERCENT AUTO 0 % (0-6); Hematocrit 28.8 % (37.0-53.0); Hemoglobin 9.9 g/dL (13.5-17.5); IMMATURE GRAN ABSOLUTE AUTO 0.08 K/mm3 (0.00-0.10); IMMATURE GRAN PERCENT AUTO 1 % (0-1); LYMPHOCYTES ABSOLUTE AUTO 0.56 K/mm3 (0.84-5.20); LYMPHOCYTES PERCENT AUTO 7 % (21-46); MONOCYTES ABSOLUTE AUTO 0.64 K/mm3 (0.16-1.47); MONOCYTES PERCENT AUTO 8 % (4-13); Mean Corpuscular HGB 30.7 pg (26.0-34.0); Mean Corpuscular HGB Conc 34.4 g/dL (31.5-36.5); Mean Corpuscular Volume 89 fL (80-100); Mean Platelet Volume 10.3 fL (9.1-12.4); NEUTROPHILS ABSOLUTE AUTO 6.82 K/mm3 (1.96-9.15); NEUTROPHILS PERCENT AUTO 84 % (41-73); Platelet Count 207 K/mm3 (150-400); RDW Coefficient Variation 13.3 % (11.7-14.2); Red Blood Cell Count 3.23 M/mm3 (4.30-5.90); White Blood Cell Count 8.11 K/mm3 (4.00-11.30)
[2020-11-04 04:23] LABS: Albumin, Blood 2.3 g/dL (3.4-5.0); Anion Gap 5 mmol/L (6-16); Blood Urea Nitrogen 15 mg/dL (8-24); Bun/Creatinine Ratio 17.5 (12.0-20.0); CO2, Blood 28 mmol/L (21-32); Calcium, Blood 7.4 mg/dL (8.5-10.1); Chloride, Blood 106 mmol/L (98-108); Creatinine, Blood 0.86 mg/dL (0.60-1.20); Glomerular Filtration Rate >60 (60-); Glucose, Blood 107 mg/dL (70-99); Phosphorus, Blood 2.8 mg/dL (2.5-4.9); Potassium, Blood 3.9 mmol/L (3.5-5.5); Sodium, Blood 139 mmol/L (136-145)
--- NOTE | 2020-11-04 07:02 | NUR ---
SHIFT SUMMARY PT A&OX4. REMAINS ON BIPAP AT THIS TIME. SWAPPED BETWEEN BIPAP AND AIRVO MASK DURING THE NIGHT FOR PT COMFORT. AIRVO MASK SEEMS TO WORK WELL FOR PT WHILE AWAKE, BUT WHEN SLEEPING HE ACCIDENTALLY PULLS OFF MASK. PT MEDICATED X 2 c PRN ATIVAN FOR ANXIETY/ RESTLESSNESS. NO OTHER SIGNIFICANT CHANGES DURING THE NIGHT. REPORT TO ONCOMING NURSE.
--- NOTE | 2020-11-04 07:35 | NUR ---
INITIAL ASSESSMENT PATIENT ALERT AND ORIENTED X 4, AFEBRILE. PATIENT IRRITABLE BUT COOPERATIVE THIS AM. PATIENT REMAINS WITHDRAWN, FLAT, DEPRESSED AFFECT. PATIENT SLOW TO RESPOND. PATIENT DENIES PAIN. PATIENT WEAK BUT ABLE TO REPOSITION HIMSELF IN BED. PATIENT RIPPED BIPAP OFF THIS AM STATING THAT HE COULD NOT SLEEP WITH IT ON. PATIENT DESATTED DOWN TO LOW OF 80%. NURSE PLACED BACK ON BIPAP UNTIL SATS IMPROVED AND THEN PLACED ON AIRVO AT 60 L AND 100% FIO2. LUNGS DIMINISHED THROUGHOUT. EXPIRATORY COARSENESS HEARD IN LOWER LOBES. PATIENT HAS NONPRODUCTIVE COUGH. SOB NOTED WITH EXERTION. PATIENT IN SR WITH BBB, HR IN THE 70S. SBP IN THE 120S. SCDS IN PLACE. NO ACTIVE BLEEDING GI BLEEDING NOTED. LAST BM A FEW DAYS AGO. PATIENT ON REGULAR DIET. HYPOACTIVE BOWEL SOUNDS NOTED. URINE YELLOW. URINALS AT BEDSIDE. PATIENT SOMETIMES SPILLS. R KNEE ABRASION NOTED. SCATTERED SCABS NOTED. PROTONIX INFUSING AT 10 MLS/ HOUR. NS INFUSING TKO. BED LOW, CALL LIGHT IN REACH. WILL CONTINUE TO MONITOR PATIENT FREQUENTLY THROUGHOUT SHIFT.
--- NOTE | 2020-11-04 10:18 | NUR ---
AIRVO DECREASED TO 60 L AND 75% FIO2.
--- NOTE | 2020-11-04 10:53 | NUR ---
FIO2 DECREASED TO 65%.
--- NOTE | 2020-11-04 12:28 | NUR ---
SHIFT SUMMARY PATIENT REMAINED ALERT AND ORIENTED X 4, AFEBRILE. PATIENT VERY IRRITABLE THIS AM. PATIENT STARTED ON PRECEDEX TO TRY AND HELP HIM TOLERATE BIPAP BETTER. PATIENT BECAME HYPOTENSIVE. PRECEDEX THEN PLACED ON SB AND REMAINS ON SB AT THIS TIME. PATIENT HAD NO COMPLAINTS OF PAIN. PATIENT HAS BEEN SATTING WELL ON BIPAP 12/8 AND 65% FIO2. PATIENT DID NOT TOLERATE AIRVO AT 60 L AND 100% FIO2 THIS AM AND HAD TO BE PLACED ON BIPAP AT 100% FIO2 FOR A PERIOD OF TIME FOR SATS TO COME BACK UP. PATIENT REMAINED SR TO ST WITH BBB, HR 60S TO LOW 100S. SBP 70S TO 160S. NO ACTIVE GI BLEEDING NOTED. DR. LANGFORD STOPPED BY. NO BM THIS SHIFT. PATIENT UNABLE TO EAT BECAUSE OF NEED TO BE ON BIPAP. ADEQUATE URINE OUTPUT. NO CHANGE TO SKIN. PATIENT ABLE TO REPOSITION SELF FREQUENTLY THROUGHOUT SHIFT. PROTONIX REMAINS AT 10 MLS/ HOUR AND NS AT 50 MLS/ HOUR. PRN HALDOL ORDERED TO HELP IF PATIENT AGITATION CONTINUES. PATIENT REFUSED TO GET OOB TO CHAIR THIS SHIFT. REPORT HAS BEEN GIVEN TO ASSUMING NURSE.
--- NOTE | 2020-11-04 17:51 | NUR ---
SHIFT SUMMARY ASSUMED CARE OF PT @ 1200 SHIFT EVENTS: PT RESTARTED ON PRECEDEX R/T BIPAP TOLERANCE, ANXIETY,RESTLESSNESS AND IRRITABILITY, SUBSEQUENT HYPOTENSION OCCURED, 500ml NS BOLUS ADMINISTERED AND PRECEDEX TITRATED TOLERATED. PT NOT TOLERATING HIGHFLOW, REPORTS NASAL CONGESTION, NEW ORDER FOR OCEAN SPRAY NASAL SPRAY. PT ORIENTED x4, DROWSY AT TIMES, ON BIPAP 12/8 FiO2 50%, TRANSITIONED TO HIGH FLOW AT 60L AND 100% FiO2 FOR PO INTAKE AND THEN PLACED BACK ON BIPAP. MONITOR SHOWS SINUS RHYTHM WITH BBB, BP CURRENTLY STABLE. PT UNABLE TO EAT LUNCH THIS SHIFT R/T OXYGEN DESATURATIONS WHILE ON HIGH FLOW. PT REPORTS DECREASED APPETITE, DISCUSSED IMPORTANCE OF CALORIE AND PROTEIN INTAKE TO PROMOTE HEALING AND PT AGREEABLE TO ENSURE SUPPLEMENTS. EDUCATED PT ON NEED TO CALL STAFF FOR ASSISTANCE WITH PO FLUIDS WHILE ON BIPAP. PT VOIDING IN URINAL AT BEDSIDE. PT MOVES ALL EXTREMETIES AND REPOSITIONS SELF IN BED. CALL LIGHT WITHIN REACH, PT USING APPROPRIATELY.
[2020-11-05 03:52] LABS: BASOPHILS ABSOLUTE AUTO 0.01 K/mm3 (0.00-0.23); BASOPHILS PERCENT AUTO 0 % (0-2); EOSINOPHILS PERCENT AUTO 0 % (0-6); Hematocrit 29.4 % (37.0-53.0); Hemoglobin 10.1 g/dL (13.5-17.5); IMMATURE GRAN ABSOLUTE AUTO 0.13 K/mm3 (0.00-0.10); IMMATURE GRAN PERCENT AUTO 2 % (0-1); LYMPHOCYTES ABSOLUTE AUTO 0.52 K/mm3 (0.84-5.20); LYMPHOCYTES PERCENT AUTO 7 % (21-46); MONOCYTES ABSOLUTE AUTO 0.52 K/mm3 (0.16-1.47); MONOCYTES PERCENT AUTO 7 % (4-13); Mean Corpuscular HGB 30.9 pg (26.0-34.0); Mean Corpuscular HGB Conc 34.4 g/dL (31.5-36.5); Mean Corpuscular Volume 90 fL (80-100); Mean Platelet Volume 10.4 fL (9.1-12.4); NEUTROPHILS ABSOLUTE AUTO 6.29 K/mm3 (1.96-9.15); NEUTROPHILS PERCENT AUTO 84 % (41-73); Platelet Count 223 K/mm3 (150-400); RDW Coefficient Variation 13.5 % (11.7-14.2); RDW Standard Deviation 44.2 fL (35.1-46.3); Red Blood Cell Count 3.27 M/mm3 (4.30-5.90); White Blood Cell Count 7.47 K/mm3 (4.00-11.30)
[2020-11-05 04:09] LABS: Albumin, Blood 2.3 g/dL (3.4-5.0); Anion Gap 4 mmol/L (6-16); Blood Urea Nitrogen 18 mg/dL (8-24); Bun/Creatinine Ratio 19.4 (12.0-20.0); CO2, Blood 29 mmol/L (21-32); Calcium, Blood 7.7 mg/dL (8.5-10.1); Chloride, Blood 107 mmol/L (98-108); Creatinine, Blood 0.93 mg/dL (0.60-1.20); Glomerular Filtration Rate >60 (60-); Glucose, Blood 88 mg/dL (70-99); Phosphorus, Blood 2.6 mg/dL (2.5-4.9); Potassium, Blood 3.8 mmol/L (3.5-5.5); Sodium, Blood 140 mmol/L (136-145)
--- NOTE | 2020-11-05 09:36 | NUR ---
AM NOTE... ASSUMED CARE OF PT AT 0700, PT IS ON THE BIPAP AT 12/8 AND 60% FIO2, PT IS VERY AGITATED AND CONFUSED BUT ABLE TO STATE HIS NAME, PLACE AND BUT GOES RIGHT BACK TO PULLING OFF THE BIPAP, PULLING ON LINE AND ATTEMPTING TO PULL OUT LINES. THE PRECEDEX WAS INCREASED TO 0.7 AND 2MG IV HALDOL WERE GIVEN. DURING THIS TIME THE PT WAS HYPERTENISVE WITH SBP IN THE 170'S AND HR IN THE 120'S-130'S, THE PT RESPONDED WELL TO THE IV HALDOL, PT'S VS IMPROVED AND THE PT STOPPED ATTEMPTING TO CLIMB OUT OF BED AND PULL ON LINES. DR. SCOTT NOTIFIED AND ORDER FOR LEVIN, AND TO INCREASE THE PRECEDEX UP TO 1.4 IF NEEDED WAS OBTAINED. WILL CONTINUE TO MONITOR.
--- NOTE | 2020-11-05 11:22 | NUR ---
PT UPDATE... THIS RN WAS IN THE ROOM THE PLACE A TEMP LEVIN PER ORDERS. THE LEVIN WAS PLACED WITHOUT ISSUE. THE PT'S PRECEDEX WAS INCREASED TO 1MCG AT 1022, AT 1120 THE PT'S BP DROPPED DOWN TO THE 70'S / 30'S, PT HR WAS SR IN THE 70'S. THE PRECEDEX WAS TURNED BACK DOWN TO 0.7MCG, THIS DID NOT IMPROVE THE PT'S BP. DR. SCOTT NOTIFIED AND AN ORDER FOR STAT 100MLS BOLUS AND LABS FOR LACTIC ACID WERE DRAWN. BOLUS WAS STARTED AT 1130, AND LABS WERE DRAWN FROM HIS PICC LINE. PT'S CURRENT TEMP IS 101.5. ALSO NOTED THAT THE PT IS DEVELOPING A RAISED RED RASH WITH SMALL BUMPS ON HIS RIGHT PECTORAL AREA, RIGHT AND LEFT GROIN AREA WELL HIS LEFT SHOULDER. THIS WAS NOT NOTED DURING THIS AM'S ASSESSMENT. WILL CONTINUE TO MONITOR.
[2020-11-05 12:10] LABS: Source, Urine Catheter
[2020-11-05 12:19] LABS: Appearance, Urine Clear (Clear); Bilirubin, Urine Neg (Neg); Blood, Urine Neg (Neg); Color, Urine Yellow (P-Yellow); Glucose Qualitative, Urine Neg (Neg); Ketones, Urine Neg (Neg); Leukocyte Esterase, Urine Neg (Neg); Nitrite, Urine Neg (Neg); Protein, Urine Neg (Neg); Urobilinogen, Urine NORM (Normal)
--- NOTE | 2020-11-05 18:48 | NUR ---
SHIFT SUMMARY.... PT HAS BEEN ON THE PRECEDEX GTT BETWEEN 0.4 AND 1.2 T/O THIS SHIFT, LEVOPHED WAS STARTED D/T HYPOTENSION CAUSED BY THE PRECEDEX, THE PRECEDEX WAS PLACED ON STAND BY WHEN THE PT'S HR DROPPED DOWN TO THE 40'S-50'S SINUS ELISA, THE PT WAS GIVEN 2MG IV HALDOL WHICH HE RESPONDED VERY WELL TO. THE PT CONTINUES TO BE CONFUSED AND PULL ON HIS LEVIN AND HIS LINES WHEN HE WAKES UP, THE PT HAD PULLED ON HIS LEVIN SO HARD HIS URINE HAD TARAH RED BLOOD, THE LEVIN IS STILL DRAINING WELL AT THIS TIME. PT HAS NOT HAD A BM SINCE 10/31, DR. LANGFORD AWARE AND IS OKAY WITH THIS FOR NOW. DR. LANGFORD AT THE BEDSIDE TO ASSESS THE PT, NO NEW ORDERS AT THIS TIME. PT HAS BEEN ON THE BIPAP ALL SHIFT, ORAL CARE DONE T/O THE SHIFT BUT PT HAS BEEN FIGHTING THE ORAL CARE. PT'S CALLED AND WAS UPDATED ON HIS CONDITION AND PLAN OF CARE. WILL CONTINUE TO MONITOR UNTIL REPORT IS GIVEN TO ONCOMING RN.
--- NOTE | 2020-11-05 19:30 | NUR ---
PATIENT AWAKE AND RESTLESS PULLING OFF BIPAP, " I NEED TO GET OUT OF HERE " WANTING TO GET UP TO URINATE. PATIENT REMINDED THAT HE HAS A LEVIN TO DRAIN HIS BLADDER. PATIENT ABLE TO ANSWER QUESTIONS APPROPRIATELY REMEMBERING THAT HE IS IN THE HOSPITAL AND THE DATE. PRECEDEX RESTARTED AT 0.2 MCG TO HELP PATIENT MINA BIPAP. LEVOPHED TITRATED DOWN TO 1 MCG FOR HYPOTENSION. BILAT WRIST RESTRAINTS REMAIN IN PLACE TO REMIND PATIENT TO NOT PULL ON LINES AND BIPAP.
--- NOTE | 2020-11-06 04:02 | NUR ---
PATIENT RELAXED AND APPEARS MORE AWARE OF WHY HE IS AT THE HOSPITAL AND HOW IMPORTANT HIS OXYGEN IS. USING CALL LIGHT APPROPRIATELY. PRECEDEX CONTINUES AT 0.2 MCG. WRIST RESTRAINTS REMOVED, PATIENT VERBALIZED HE WILL CALL WITH THE CALL LIGHT IF NEEDING REPOSITIONING.
--- NOTE | 2020-11-06 06:03 | NUR ---
SUMMARY PATIENT RELAXED A&O X3 USING CALL LIGHT APPROPRIATELY. PRECEDEX 0.2 MCG CONTINUES. PATIENT NOW ON AIRVO 60 L FIO2 75% HAS BIPAP 10/6 FIO2 75% IF NEEDED. PATIENT DESATING VERY EASILY WITH SLIGHT EXERTION WITH SLOW RECOVERY. PROTONIX DRIP CONTINUES. PATIENT MINA PO WITHOUT DIFFICULTY. TYLENOL PO GIVEN FOR C/O NASAL PAIN FROM HIGH FLOW OXYGEN. URINE CONTINUES TO HAVE A SMALL AMT OF BLOOD TINGE, BUT CLEARING NIGHT PROGRESSED.
--- NOTE | 2020-11-06 09:06 | NUR ---
ASSUMED CARE OF PT, REPORT RCV'D FROM DANIEL HENRY. PT ALERT AND ORIENTED TO SELF/TIME/SITUATION. PT COOPERATIVE WITH CARE AND ASSISTS WITH PATIENT CARE. PT ON AIRVO 60L, 70% WITH SATS 91, WILL USE BIPAP 10/6, 60% NEEDED, LUNG SOUNDS DIM T/O. PT REMAINS OUT OF RESTRAINTS AND ON PRECEDEX 0.2 MCG/KG/HR D/T ANXIETY. BED ALARM ON AND CURTAIN OPEN, CALL LIGHT IN PT'S HAND AND PT REMINDED TO CALL FOR ASSISTANCE NEEDED. LEVIN PATENT AND DRAINING TO GRAVITY. PT SITTING UP AND EATING BREAKFAST INDEPENDENTLY. PROTONIX GTT @ 10 ML/HR. SEE FULL SHIFT ASSESSMENT.
--- NOTE | 2020-11-06 12:08 | NUR ---
PT PLACED BACK ON BIPAP SATS DROPPED TO THE LOW 70%. RT TO BEDSIDE TO TRIAL PLACING PT BACK ON AIRVO, PT UNABLE TO MAINTAIN SATURATIONS. WHILE THIS RN IN ANOTHER ROOM PT TOOK BIPAP MASK OFF AND SATS DROPPED TO 61%, RT TO BEDSIDE TO REPLACE MASK...PT'S SATS SLOW TO RECOVER. PT REMINDED TO LEAVE MASK IN PLACE AND PRECEDEX SLOWLY INCREASED. SHORTLY AFTER PT BEGAN TO PULL MASK OFF AND PULL AT LINES/CORDS/LEVIN. PRECEDEX GTT @1.4 MCG/KG/HR, PT GIVEN HALDOL, DR. SCOTT NOTIFIED AND PT PLACED IN RESTRAINTS. PT RR IN THE UPPER 30'S-40'S, HR 110-130'S. TEMP INCREASED AND CURRENTLY 102.7.
[2020-11-06 12:34] LABS: BASOPHILS ABSOLUTE AUTO 0.01 K/mm3 (0.00-0.23); BASOPHILS PERCENT AUTO 0 % (0-2); EOSINOPHILS ABSOLUTE AUTO 0.01 K/mm3 (0.00-0.68); EOSINOPHILS PERCENT AUTO 0 % (0-6); Hematocrit 30.9 % (37.0-53.0); Hemoglobin 10.5 g/dL (13.5-17.5); IMMATURE GRAN ABSOLUTE AUTO 0.13 K/mm3 (0.00-0.10); IMMATURE GRAN PERCENT AUTO 1 % (0-1); LYMPHOCYTES ABSOLUTE AUTO 0.42 K/mm3 (0.84-5.20); LYMPHOCYTES PERCENT AUTO 4 % (21-46); MONOCYTES ABSOLUTE AUTO 0.44 K/mm3 (0.16-1.47); MONOCYTES PERCENT AUTO 5 % (4-13); Mean Corpuscular HGB 30.3 pg (26.0-34.0); Mean Corpuscular Volume 89 fL (80-100); Mean Platelet Volume 9.7 fL (9.1-12.4); NEUTROPHILS ABSOLUTE AUTO 8.73 K/mm3 (1.96-9.15); NEUTROPHILS PERCENT AUTO 90 % (41-73); Platelet Count 219 K/mm3 (150-400); RDW Coefficient Variation 13.8 % (11.7-14.2); Red Blood Cell Count 3.46 M/mm3 (4.30-5.90); White Blood Cell Count 9.74 K/mm3 (4.00-11.30)
[2020-11-06 12:50] LABS: Anion Gap 7 mmol/L (6-16); Blood Urea Nitrogen 19 mg/dL (8-24); CO2, Blood 23 mmol/L (21-32); Calcium, Blood 7.9 mg/dL (8.5-10.1); Chloride, Blood 107 mmol/L (98-108); Creatinine, Blood 0.86 mg/dL (0.60-1.20); Glomerular Filtration Rate >60 (60-); Glucose, Blood 82 mg/dL (70-99); Potassium, Blood 3.8 mmol/L (3.5-5.5); Sodium, Blood 137 mmol/L (136-145)
[2020-11-06 13:44] LABS: PCO2 Arterial 30.7 mmHg (35-45); PO2 Arterial 89.4 mmHg (80-100); pH Blood Arterial 7.53 (7.35-7.45)
[2020-11-06 18:07] LABS: Source, Urine Catheter
[2020-11-06 18:13] LABS: Appearance, Urine Hazy (Clear); Bilirubin, Urine Neg (Neg); Blood, Urine 5+ (Neg); Color, Urine Yellow (P-Yellow); Glucose Qualitative, Urine Neg (Neg); Ketones, Urine Neg (Neg); Leukocyte Esterase, Urine 3+ (Neg); Nitrite, Urine Neg (Neg); Protein, Urine 3+ (Neg); Specific Gravity, Urine 1.015 (1.003-1.022); Urobilinogen, Urine 2+ (Normal); pH, Urine 6.5 (5.0-8.0)
[2020-11-06 18:23] LABS: Red Blood Cells, Urine TNTC /hpf (0-2)
[2020-11-06 18:25] LABS: Bacteria Many /hpf
[2020-11-06 18:26] LABS: Squamous Epithelial Cells Rare /hpf (Few)
--- NOTE | 2020-11-06 18:33 | NUR ---
SHIFT SUMMARY PT REMAINS BIPAP DEPENDENT, /, 75% WITH SATS MID 90'S. PT PLACED IN RESTRAINTS D/T CONFUSION AND PULLING BIPAP OFF, BED ALARM ON. PT ALERT TO SELF, OCCASIONAL CONFUSION, COOPERATIVE AND ABLE TO BE REDIRECTED. LUNG SOUNDS REMAIN DIM T/O, NO COUGH T/O SHIFT. BT REMAIN HYPOACTIVE, NO BOWEL MOVEMENT THIS SHIFT, NO EVIDENCE OF UPPER OR LOWER BLEED. LEVIN PATENT AND DRAINING CLOUDY YELLOW URINE, 800 ML URINARY OUTPUT THIS SHIFT. 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 PT'S RASH NOW ON LEFT AXILLA AND BILATERAL GROIN, APPEARS TO BE HEAT RELATED. PT TMAX 103.2, CURRENT TEMP 101.6. PT'S AT BEDSIDE, EXPRESSES PT'S WISH TO "BE FULL CODE", EXPRESSES FRUSTRATION SHE BELIEVES PHYSICIAN DOESNT' BELIEVE PT'S LIFE IS "WORTH SAVING", EXPLAINED THAT IT IS PHYSICIANS JOB TO EXPLAIN RISKS RELATED TO RESUSCITATION AND THAT CODE STATUS IS COMPLETELY THEIR CHOICE. GIVEN UNIT PHONE NUMBER TO CALL FOR UPDATED. WILL REPORT TO ONCOMING NURSE.
--- NOTE | 2020-11-06 20:00 | NUR ---
PATIENT AWAKE PULLING OFF BIPAP AND PULLING ON LEVIN, UNABLE TO VERBALIZE WHAT HE WAS TRYING TO DO OR GO. BIOX DOWN TO 70'S, BIPAP REPLACED 10/6 FIO2 UP TO 100% TO HELP RECOVER OXYGEN. PATIENT SHIVERING, TEMP 102.2 AND PATIENT SHIVERING COVERED WITH SHEET AND LIGHT BLANKET. TORADOL IV GIVEN. PRECEDEX 1.4MCG CONTINUES. PATIENT RELAXING AND BIOX RECOVERING PLAN TO TITRATE FIO2 ABLE.
[2020-11-07 04:42] LABS: BASOPHILS ABSOLUTE AUTO 0.01 K/mm3 (0.00-0.23); BASOPHILS PERCENT AUTO 0 % (0-2); EOSINOPHILS ABSOLUTE AUTO 0.02 K/mm3 (0.00-0.68); EOSINOPHILS PERCENT AUTO 0 % (0-6); Hematocrit 27.2 % (37.0-53.0); Hemoglobin 9.1 g/dL (13.5-17.5); IMMATURE GRAN ABSOLUTE AUTO 0.06 K/mm3 (0.00-0.10); IMMATURE GRAN PERCENT AUTO 1 % (0-1); LYMPHOCYTES ABSOLUTE AUTO 0.43 K/mm3 (0.84-5.20); LYMPHOCYTES PERCENT AUTO 6 % (21-46); MONOCYTES ABSOLUTE AUTO 0.32 K/mm3 (0.16-1.47); MONOCYTES PERCENT AUTO 5 % (4-13); Mean Corpuscular HGB 30.3 pg (26.0-34.0); Mean Corpuscular HGB Conc 33.5 g/dL (31.5-36.5); Mean Corpuscular Volume 91 fL (80-100); Mean Platelet Volume 10.4 fL (9.1-12.4); NEUTROPHILS ABSOLUTE AUTO 6.21 K/mm3 (1.96-9.15); NEUTROPHILS PERCENT AUTO 88 % (41-73); Platelet Count 194 K/mm3 (150-400); RDW Coefficient Variation 13.9 % (11.7-14.2); RDW Standard Deviation 45.9 fL (35.1-46.3); White Blood Cell Count 7.05 K/mm3 (4.00-11.30)
[2020-11-07 05:00] LABS: Anion Gap 5 mmol/L (6-16); Blood Urea Nitrogen 22 mg/dL (8-24); Bun/Creatinine Ratio 19.1 (12.0-20.0); CO2, Blood 25 mmol/L (21-32); Calcium, Blood 7.3 mg/dL (8.5-10.1); Chloride, Blood 109 mmol/L (98-108); Creatinine, Blood 1.15 mg/dL (0.60-1.20); Glomerular Filtration Rate >60 (60-); Glucose, Blood 91 mg/dL (70-99); Potassium, Blood 3.9 mmol/L (3.5-5.5); Sodium, Blood 139 mmol/L (136-145)
--- NOTE | 2020-11-07 07:27 | NUR ---
SUMMARY PATIENT SLEEPING WITH BIPAP / FIO2 70% T/O NIGHT, AWAKENS TO TACTILE STIMULI, FALLING BACK TO SLEEP WHEN UNDISTURBED. PRECEDEX TITRATED DOWN TO 0.7 THIS MORNING AND PATIENT BECOMING VERY RESTLESS, PULLING OFF BIPAP, BIOX DOWN TO 78% ON RA AND PULLING AT LEVIN CATH MAKING HIMSELF BLEED FROM HIS URETHRA AGAIN AND CONTINUES TO HAVE BLOODY URINE. PRECEDEX INCREASED BACK TO 1.4 TO HELP PATIENT MINA BIPAP. TEMP DOWN FROM 102 TO 100.3 AFTER TORADOL AND TYLENOL GIVEN DURING THE NIGHT .
--- NOTE | 2020-11-07 08:00 | NUR ---
INITIAL ASSESSMENT PATIENT ON PRECEDEX DRIP AT 1.0 MCG/ KG/ HOUR. PATIENT ON PRECEDEX FOR PERIODS OF INCREASED AGITATION, CONFUSION AND PULLING AT BIPAP, LEVIN AND MONITORING EQUIPMENT. PATIENT LETHARGIC BUT ANSWERS ALL ORIENTATION QUESTIONS CORRECTLY THIS AM. SLOW TO RESPOND. PATIENT WEAK BUT ABLE TO MOVE ALL EXTREMITIES. PATIENT AFEBRILE. PATIENT DENIES PAIN. PATIENT ON BIPAP AT 10/6 6 AND 70% FIO2. LUNGS CLEAR IN UPPER LOBES; DIMINISHED IN LOWER LOBES. OCCASIONAL, NONPRODUCTIVE COUGH NOTED. SOB WITH EXERTION. PATIENT IN SR WITH BBB, HR 60S TO 70S. SBP IN THE LOW 100S. 1+ EDEMA NOTED TO RIGHT FOOT AND RIGHT HAND. HYPOACTIVE BOWEL SOUNDS NOTED. PATIENT NPO BECAUSE OF BIPAP DEPENDENCE AT THIS TIME. LAST BM DOCUMENTED ON 10/31. LEVIN DRAINING DARK CRANBERRY COLORED URINE; URINE CLOUDY IN APPEARANCE. RECEIVED REPORT THAT PATIENT HAD BEEN PULLING ON HIS FOLEYY QUITE OFTEN. SCATTERED BRUISES NOTED. SCAB NOTED TO R KNEE. RASHES NOTED TO BILAT AXILLI, GROIN, TOPS OF FEET, UPPER R ARM. PICTURES TAKEN AND ADDED TO CHART. NS INFUSING AT 50 MLS/ HOUR. BED LOW, CALL LIGHT IN REACH. WILL CONTINUE TO MONITOR PATIENT FREQUENTLY THROUGHOUT SHIFT.
--- NOTE | 2020-11-07 12:00 | NUR ---
PATIENT HAS TEMP OF 99.9 DEGREES FAHRENHEIT. PRECEDEX AT 0.2 MCG/ KG/ HOUR. RESTRAINTS DC'D PATIENT HAS REMAINED CALM, COOPERATIVE AND NOT PULLING AT CRITICAL LINES AND CORDS. CRACKLES NOTED IN BILAT LOWER LUNG LOBES. AIRVO ON AT 70 L AND 100% FIO2. HR 60S TO 70S. SBP 120S TO 130S. WILL CONTINUE TO MONITOR.
--- NOTE | 2020-11-07 13:28 | NUR ---
DR. SCOTT UPDATED ON PATIENT STATUS. INFORMED OF RASHES AND THAT OUTLINED IN SKIN MARKER. INFORMED THAT PICC LINE NOW 13 CM OUT FROM 11 CM OUT AFTER DRESSING CHANGE. INFORMED THAT PATIENT HAS NOT BEEN HAVING GREAT INPUT DUE TO BIPAP DEPENDENCE. INFORMED THAT PATIENT HAD TMAX OF 102.7 DEGREES FAHRENHEIT LAST NIGHT. NO ORDERS RECEIVED AT THIS TIME.
[2020-11-07 15:41] LABS: Vancomycin, Trough 7.4 ug/mL (5.0-10.0)
--- NOTE | 2020-11-07 15:51 | NUR ---
PATIENT AFEBRILE. PRECEDEX PLACED ON SB. PATIENT ORIENTED AND CALM, COOPERATIVE. HR 70S TO 80S. SBP LOW 100S TO 130S. PATIENT 2 PERSON ASSIST TO CHAIR. PATIENT SATTING 90% AND GREATER ON AIRVO AT 70 L AND 70% FIO2. PATIENT READING BOOK IN CHAIR AND PLAYING WITH CELL PHONE. WILL CONTINUE TO MONITOR.
--- NOTE | 2020-11-07 18:50 | NUR ---
SHIFT SUMMARY PATIENT REMAINED ALERT AND ORIENTED X 4. LETHARGIC THIS AM FROM PRECEDEX DRIP. PRECEDEX DRIP TITRATED TO OFF THIS SHIFT. PATIENT HAS REMAINED CALM, COOPERATIVE. PATIENT DID BECOME ANXIOUS A COUPLE OF TIMES WHEN BECAME SOB BUT WAS ABLE TO BE COACHED TO TAKE DEEP BREATH AND CALM DOWN. PATIENT HAD NO COMPLAINTS OF PAIN THIS SHIFT. PATIENT HAD TMAX OF 99.9 DEGREES FAHRENHEIT. PATIENT MOSTLY ON BIPAP 10/6 AND 70 TO 100% FIO2, BUT DID HAVE BREAKS ON AIRVO AT 70 L AND RANGING BETWEEN 70 AND 100% FIO2. PATIENT CONTINUED TO HAVE MOIST, NONPRODUCTIVE COUGH. PATIENT REMAINED IN SR WITH BBB, HR 60S TO 80S. SBP LOW 100S TO 130S. NO BM THIS SHIFT. PATIENT ATE 10% OF LUNCH BUT WAS NOT ABLE TO EAT BREAKFAST OR DINNER DUE TO BEING ON BIPAP. PATIENT STARTED ON CLINIMIX THIS SHIFT. GOOD URINE OUTPUT. URINE DARK CRANBERRY IN COLOR AND CLOUDY. NO CHANGES TO SKIN. PATIENT REPOSITIONED FREQUENTLY T/O SHIFT. NS TKO. PATIENT HAD COMPLETE BED BATH. RESTRAINTS DC'D THIS SHIFT. OOB TO CHAIR THIS SHIFT. DAUGHTER AND TO VISIT TOMORROW. PATIENT APPEARS COMFORTABLE AT THIS TIME. BED LOW, CALL LIGHT IN REACH. REPORT WILL BE GIVEN TO [facility] CLIENT CARE CONSULTANT NURSE SHORTLY.
--- NOTE | 2020-11-07 22:46 | NUR ---
SHIFT ASSESSMENT ASSUMED CARE OF PT @ 1900. REPORT FROM DANIEL LIU. PT ALERT AND ORIENTED. PT INITIALLY ON BIPAP, TRANSITIONED TO AIRVO FOR DINNER. THIS NURSE COACHED PT TO EAT SLOWLY AND FOCUS ON BREATHING THROUGH NOSE, PT COMPLIED BUT HAD TO BE FREQUENTLY REMINDED. DUE TO PTS NOSE CONTINUALLY BEING CLOGGED, ATTEMPTED TO GIVE PT A BREAK FROM BIPAP WITH AIRVO MASK, PT ONLY TOLERATED FOR A SHORT TIME. BIPAP NOW ON PT @ 10/12 @ 75%, WILL TITRATE O2 DOWN TOLERATED. ATTEMPTED TO TURN HARD LEFT WITH BIPAP IN PLACE, BUT PT BECAME VERY ANXIOUS. PRECEDEX GTT INITIATED @ 0.2MCG/KG/HR. PT CURRENTLY RESTING ON HIS BACK, RR IN MID TO UPPPER 30'S. NS @ TKO AND CLINIMIX INFUSING IN JD PICC, CURRENTLY FLOWING WELL BUT PICC HAS BEEN POSITIONAL THIS SHIFT. TEMP LEVIN CATH PATENT, TEMP PROBE NOT WORKING, DRAINING REDDISH URINE FROM PREVIOUS NIGHT OF PT PULLING AT LEVIN.
[2020-11-08 04:15] LABS: Anion Gap 4 mmol/L (6-16); Blood Urea Nitrogen 23 mg/dL (8-24); Bun/Creatinine Ratio 24.6 (12.0-20.0); CO2, Blood 25 mmol/L (21-32); Calcium, Blood 7.4 mg/dL (8.5-10.1); Chloride, Blood 107 mmol/L (98-108); Creatinine, Blood 0.93 mg/dL (0.60-1.20); Glomerular Filtration Rate >60 (60-); Glucose, Blood 155 mg/dL (70-99); Phosphorus, Blood 2.3 mg/dL (2.5-4.9); Potassium, Blood 4.2 mmol/L (3.5-5.5); Sodium, Blood 136 mmol/L (136-145)
[2020-11-08 04:41] LABS: Magnesium, Blood 2.3 mg/dL (1.6-2.4)
--- NOTE | 2020-11-08 07:07 | NUR ---
SHIFT SUMMARY PT REMAINS A&OX4. TOLERATING BIPAP WELL, GIVEN SHORT BREAKS FOR WATER AND ORAL CARE. PTS ANXIETY TREATED c PRECEDEX DURING THE NIGHT. TITRATED UP TO 1.4MCG/KG/HR, SLOWLY TITRATED TO SB THIS AM DUE TO HYPOTENSION. SBP CURRENTLY IN THE 110'S. LEVIN CATH CONTINUES TO DRAIN REDDISH URINE. NO BM DURING THE NIGHT. NO OTHER SIGNIFICANT CHANGES TO PT CONDITION.
--- NOTE | 2020-11-08 07:48 | NUR ---
INITIAL ASSESSMENT PATIENT ALERT AND ORIENTED X 4 THIS AM. AFEBRILE. PATIENT CALM AND COOPERATIVE AT THIS TIME BUT DOES BECOME ANXIOUS AT TIMES. PATIENT DENIES PAIN. PATIENT CHANGED OVER FROM BIPAP 10/6 AND 70% FIO2 TO AIRVO 70 L AND 100% FIO2. LUNGS DIMINISHED THROUGHOUT. CRACKLES NOTED IN LOWER LOBES. PATIENT HAS OCCASIONAL, MOIST, NONPRODUCTIVE COUGH. RR IN THE 30S. PATIENT SOB WITH EXERTION. PATIENT IN SR WITH BBB, HR IN THE 60S. SBP IN THE 90S. HYPOACTIVE BS NOTED. PATIENT ON REGULAR DIET, BUT HAS NOT BEEN EATING MUCH THE LAST COUPLE OF DAYS. NO ACTIVE GI BLEEDING NOTED. LAST BM ON 10/31; HOSPITALIST INFORMED OF POSSIBLE NEED FOR BOWEL CARE. LEVIN DRAINING TEA COLORED URINE WITH SEDIMENT NOTED. PENIS BLEEDING YESTERDAY FROM NIGHT BEFORE WHEN PATIENT CONFUSED AND PULLED ON LEVIN MULTIPLE TIMES. SCATTERED BRUISES NOTED. SCATTERED RASHES NOTED; PICS IN PATIENT CHART AND RASHES OUTLINED IN SKIN MARKER. R KNEE SCAB NOTED. CLINIMIX INFUSING AT 75 MLS/ HOUR, NS TKO, PRECEDEX ON SB. 20 MM SODIUM PHOS INFUSING FOR PHOS OF 2.3 THIS AM. BED LOW, CALL LIGHT IN REACH. WILL CONTINUE TO MONITOR PATIENT FREQUENTLY THROUGHOUT SHIFT.
--- NOTE | 2020-11-08 08:00 | NUR ---
DR. SCOTT UPDATED ON PATIENT STATUS.
--- NOTE | 2020-11-08 12:15 | NUR ---
PATIENT AFEBRILE. PATIENT ON AIRVO AT 70 L AND 100% FIO2. PATIENT COUGHING UP SMALL AMOUNTS OF THICK CLEAR SPUTUM WITH BROWN PARTICLES IN IT. RR IN THE 30S. HR 90S TO LOW 100S. SBP 130S TO 140S. SENOKOT GIVEN. NO COMPLAINTS OF PAIN. PATIENT IN CHAIR. CALL LIGHT IN REACH. WILL CONTINUE TO MONITOR.
--- NOTE | 2020-11-08 13:33 | NUR ---
PATIENT BACK TO BED WITH TWO STAFF DUE TO LINES AND HISTORY OF HOSPITAL FALL. PATIENT MOVED WELL.
--- NOTE | 2020-11-08 14:21 | NUR ---
AND DAUGHTER HERE TO VISIT.
--- NOTE | 2020-11-08 16:00 | NUR ---
PATIENT HAS TEMP OF 98.5 DEGREES FAHRENHEIT. PATIENT SATTING IN THE 90S ON BIPAP. RR 20S TO 30S. HR IN THE LOW 100S. SBP 130S TO 140S. NO OTHER ACUTE CHANGES TO NOTE ON AT THIS TIME. WILL CONTINUE TO MONITOR.
--- NOTE | 2020-11-08 18:58 | NUR ---
SHIFT SUMMARY PATIENT REMAINED ALERT AND ORIENTED X 4. AFEBRILE ALL SHIFT. PATIENT REMAINED COOPERATIVE AND CALM MOST OF THIS SHIFT BUT DID HAVE PERIODS OF ANXIETY WHEN FEELING SOB. PATIENT HAD NO COMPLAINTS OF PAIN THIS SHIFT. LUNGS REMAINED DIM T/O, WITH CRACKLES IN LOWER LOBES. PATIENT REMAINED ON EITHER BIPAP 10/6 AND 70 TO 100% FIO2 OR AIRVO AT 70L AND 100% FIO2. PATIENT MOSTLY ON BIPAP BUT HAD A GOOD STRETCH OT AND A FEW SHORT BREAKS ON AIRVO. PATIENT REMAINED SR TO ST WITH BBB, HR 60S TO LOW 100S. SBP 90S TO 150S. NO BM THIS SHIFT. SENOKOT AND MIRALAX ADDED TO EMAR. PATIENT DID EAT A PARTIAL AMOUNT OF EACH MEAL. LEVIN DRAINED 2 L OF TEA COLORED URINE WITH SEDIMENT. NO CHANGE TO SKIN. PATIENT REPOSITIONED T/O SHIFT. COMPLETE BED BATH PERFORMED. PHYSICAL THERAPY WORKED WITH PATIENT. PATIENT OOB TO CHAIR WITH 2 PERSON ASSIST. PRECEDEX ON SB ALL SHIFT. CLINIMIX REMAINS AT 75 MLS/ HOUR. NS TKO. 20 MM SODIUM PHOS GIVEN THIS AM FOR PHOS OF 2.3. ROCEPHIN STARTED THIS SHIFT. FLONASE ORDERED FOR NASAL CONGESTION. PATIENT'S AND DAUGHTER HERE TO VISIT TODAY. PATIENT APPEARS CONTENT AT THIS TIME. BED LOW, CALL LIGHT IN REACH. REPORT WILL BE GIVEN TO ONCOMING KNOWLEDGE ENGINEER NURSE SHORTLY.
[2020-11-09 04:04] LABS: BASOPHILS ABSOLUTE AUTO 0.01 K/mm3 (0.00-0.23); BASOPHILS PERCENT AUTO 0 % (0-2); EOSINOPHILS PERCENT AUTO 0 % (0-6); Hemoglobin 8.9 g/dL (13.5-17.5); IMMATURE GRAN ABSOLUTE AUTO 0.16 K/mm3 (0.00-0.10); IMMATURE GRAN PERCENT AUTO 2 % (0-1); LYMPHOCYTES ABSOLUTE AUTO 0.43 K/mm3 (0.84-5.20); LYMPHOCYTES PERCENT AUTO 4 % (21-46); MONOCYTES ABSOLUTE AUTO 0.54 K/mm3 (0.16-1.47); MONOCYTES PERCENT AUTO 5 % (4-13); Mean Corpuscular HGB 29.9 pg (26.0-34.0); Mean Corpuscular Volume 91 fL (80-100); Mean Platelet Volume 10.3 fL (9.1-12.4); NEUTROPHILS ABSOLUTE AUTO 8.92 K/mm3 (1.96-9.15); NEUTROPHILS PERCENT AUTO 89 % (41-73); Platelet Count 193 K/mm3 (150-400); RDW Coefficient Variation 13.9 % (11.7-14.2); RDW Standard Deviation 45.5 fL (35.1-46.3); Red Blood Cell Count 2.98 M/mm3 (4.30-5.90); White Blood Cell Count 10.06 K/mm3 (4.00-11.30)
[2020-11-09 04:21] LABS: Anion Gap 6 mmol/L (6-16); Blood Urea Nitrogen 19 mg/dL (8-24); Bun/Creatinine Ratio 22.6 (12.0-20.0); CO2, Blood 26 mmol/L (21-32); Calcium, Blood 7.9 mg/dL (8.5-10.1); Chloride, Blood 100 mmol/L (98-108); Creatinine, Blood 0.84 mg/dL (0.60-1.20); Glomerular Filtration Rate >60 (60-); Glucose, Blood 370 mg/dL (70-99); Potassium, Blood 5.5 mmol/L (3.5-5.5); Sodium, Blood 132 mmol/L (136-145); Triglycerides 112 mg/dL (30-160)
--- NOTE | 2020-11-09 06:06 | NUR ---
SHIFT SUMMARY A&OX4. SP02>90% PT ON BIPAP, 01/09, 75%-100% FI02. PT CURRENTLY ON BIPAP 85%. ALSO USES AIRVO WHEN UP IN CHAIR, EATING. PT DESATTED ON AIRVO 100% FI02 DOWN TO 79% 02 WHEN EATING DINNER. PT PLACED BACK ON BIPAP. PT SR W/ BBB, HR 70'S-100'S. DENIES PAIN. LEVIN CATHETER DRAINING TEA COLORED URINE TO GRAVITY. GOOD OUTPUT THIS SHIFT. PT C/O OF ANXIETY/UNABLE TO SLEEP. CALL PLACED TO MD STEARNS. MD STEARNS WITH ORDERS FOR ATARAX, SEE EMAR. PT REPORTS NO RELIEF. PT STATES, "I STILL CAN'T SLEEP". CALL PLACED TO MD SCOTT. MD SCOTT WITH ORDERS TO START PRECEDEX. PRECEDEX INFUSING PER EMAR. CLINIMIX INFUSING PER EMAR. NS TKO. ORAL CARE DONE, PT REQUESTD TO KEEP DENTURES IN OVER NIGHT. CALL LGIHT IN REACH. WILL GIVE REPORT TO ONCOMING NURSE.
--- NOTE | 2020-11-09 09:00 | NUR ---
Assumed care of pt at 0700. Report received from DANIEL Romero. Pt A&O x 4. Answers questions. Follows commands. Verbalizes needs. Pleasant and cooperative with care. Initially receiving precedex at rate of 0.5 mcg/kg/min. Titrated off this AM. Initially on BiPAP 10/6 and 85% FiO2. Now on V60 high flow therapy with 70 LPM and 100% FiO2. SpO2 90% or greater. SR per monitor. BP stable. Pt eating breakfast at this time. Bed in lowest position. Call light in reach. Pt denies need at this time.
--- NOTE | 2020-11-09 11:09 | NUR ---
Pt OOB to recliner while on V60 high flow therapy. 70 LPM and 100% FiO2. Pt hypoxic with exertion. Sats averaging in 70s with activity, however dropped as low as 59%. Pt recovered sats to high 80s within 2-3 minutes with coaching on diaphragmatic breathing. Pt switched back to BiPAP, pt agreeable. SpO2 90% or greater at this time with support 10/6 and 100% FiO2.
--- NOTE | 2020-11-09 18:41 | NUR ---
SUMMARY Pt ate breakfast but could only tolerate liquids during subsequent BiPAP breaks due to hypoxia. Pt sats in 80% with HFT. Nasal cannula and face mask attempted with HFT. At this time, pt is on BiPAP with 10/6 and 100% FiO2. SpO2 90% or greater. Pt sat in chair for only a few hours today but did call and request to stand up at bedside to stay mobile. Pt requires BiPAP support with activity. SR per monitor. BP stable. Precedex off. Bed in lowest position. Call light in reach. Pt denies need at this time. Pt did not have BM this shift.
--- NOTE | 2020-11-09 19:30 | NUR ---
ASSUMPTION OF CARE PT REMAINS ON BIPAP 01/09 AT 100% AND TOLERATING MASK WELL. PT RECEIVING CLINIMIX AT 75MLS/HR AND NS. PT AWAKE AND WATCHING TV. PARTICIPATES IN CONVERSATION DURING ASSESSMENT. PT STS HE WOULD LIKE "SOMETHING TO HELP ME SLEEP" AND REQUESTING NYQUIL. PT INFORMED WE DO NOT HAVE NYQUIL BUT WILL DISCUSS WITH PHYSICIAN FOR MEDICATION ORDERS. PT PARTICIPATES IN OWN ORAL CARE AND WIPES FOR HIS FACE AND HEAD. LEVIN IN PLACE DRAINING CLEAR/YELLOW URINE. NO COMPLAINTS OF PAIN OR DISCOMFORT.
[2020-11-10 05:55] LABS: Anion Gap 4 mmol/L (6-16); Blood Urea Nitrogen 23 mg/dL (8-24); Bun/Creatinine Ratio 28.5 (12.0-20.0); CO2, Blood 29 mmol/L (21-32); Calcium, Blood 7.8 mg/dL (8.5-10.1); Chloride, Blood 107 mmol/L (98-108); Creatinine, Blood 0.81 mg/dL (0.60-1.20); Glomerular Filtration Rate >60 (60-); Glucose, Blood 119 mg/dL (70-99); Phosphorus, Blood 2.9 mg/dL (2.5-4.9); Potassium, Blood 4.4 mmol/L (3.5-5.5); Sodium, Blood 140 mmol/L (136-145)
--- NOTE | 2020-11-10 06:12 | NUR ---
RESPIRATORY STATUS CHANGE PT SLEEPING ALL SHIFT. REQUESTED UNINTERRUPTED SLEEP. WOKE UP AT 0600 VERY SOB AND STATING HE WAS HAVING A DIFFICULT TIME BREATHING. RESP RATE 30-40'S. OXYGEN SATURATIONS LABILE, BUT MAINTAINING LOW TO MID 80'S. BIPAP SETTINGS REMAIN 10/6; FIO2 100%; SPO2 CURRENTLY 86%. CALL MADE TO DR. HERNANDEZ WITH ORDERS FOR STAT CTA OF CHEST. RT AT BEDSIDE. PRECEDEX RESTARTED AT 1.0MCG/KG/HR.
--- NOTE | 2020-11-10 07:32 | NUR ---
END OF SHIFT SUMMARY WENT TO CT AT 0700. RT TO BEDSIDE TO ASSIST WITH TRANSPORT AND CHANGED BIPAP SETTINGS TO 18/12 WITH FIO2 100%. SPO2 >90%. PRECEDEX AT 1MCG/KG/HR WITH RESP RATE 20'S. PT STATES HE FEELS LESS ANXIOUS AND IS ABLE TO BREATHE MORE EASILY. PT TOLERATED CT; HOWEVER, HE DID BECOME HYPOTENSIVE WITH SBP IN THE 70'S AFTER INCREASING BIPAP SETTINGS; THEREFORE, RT ADJUSTED BACK TO 10/6; FIO2 100%. PT STILL MAINTAINING SPO2 >90% WITH OCCASIONAL DIPS TO THE UPPER 80'S. PRECEDEX ALSO DECREASED TO 0.5MCG/KG/HR. NEXT SBP READING 90'S. REPORT HANDED OFF TO DANIEL DILLARD. VSS AT THIS TIME, SEE FLOWSHEET.
--- NOTE | 2020-11-10 08:15 | NUR ---
BEGINNING OF SHIFT / INTUBATION / CARDIAC ARREST This RN accompanied pt to CT, accompanied by offgoing RNs. See note by off going RN. Pt back to room. RT, Chrissy in room, titrating BiPAP settings. 16/10 and 100% FiO2. Pt alarming high inspiratory pressures, this RN looked in room and pt appeared in distress. Pt grimacing, tachypneic, SpO2 dropping. Pt had panicked look on his face. This RN entered room. Offgoing RN Chantel called Dr Jeter to notify pt in distress. This RN verbally redirected patient, trying to help anxiety. Pt still had precedex at 1 mcg/kg/hr. Pt had hands on mask but understood not to pull it off. Pt asked "What is causing this". Told pt that his lungs are not well becuase of COVID and we did the CT scan to check for a blood clot. Per Dr Jeter, ER provider to intubate patient. Called Zahira Payne to received help from emergency departement. At first Code Elmer (time 0750), patient still alert, talking to staff, and following directions. SpO2 75-78% with BiPAP on maximized settings- 16/10 and 100% FiO2. BP 159/77. HR 101- ST with BBB. Intubation effort is as follows: 0754- 20 mg Etomidate given 200 mg succynlcholine given Vitals SpO2 61%, 185/113 BP, HR 122 0755- 8.[address], 25 cm ATG. SpO2 38%. Placement verified with positive color change on colormetric CO2 detector, auscultation of bilateral breath sounds, absence of sound auscultated over epigastrum. Pt having a lot of ectopy following intubation. At 0800, multifocal PVCs noted at slow rate. Weak, inconsistent central pulses palpated. CPR started. Code Blue initiated. HR 60s on monitor with wide QRS complex. Dr Alfonso at bedside. Resuscitation effort is as follows: 0800 - HR 60s per monitor. chest compressions started. 0803- BP 240/97, SpO2 77% Defibrillated for wide QRS complex tachycardia per Dr Alfonso. 199/107 and SpO2 85%. Mutifocal PVCs noted. 08- DARRIUS 227/106, pulse 80s, wide QRS, bigeminal PVCs. SpO2 91%. 150 mg amiodarone given and amiodarone started. Placed on ventilator ACVC 18/450/15/100%. SpO2 90% or greater. Resuscitation event ended at 0806. Strong, regular pulse identified.
[2020-11-10 09:02] LABS: pH Blood Arterial 6.87 (7.35-7.45)
--- NOTE | 2020-11-10 10:15 | NUR ---
CARDIAC ARREST #2 Event recogized 0818. Multifocal PVCs that deteriorated into PEA. Chest compressions started. Resuscitation even is as follows: 0818 - PEA arrest. Chest compressions started. Dr Nagy at bedside. 0820- 1 mg epinephrine given. PEA persists, chest compressions resumed. 0822- PEA on pulse check. Chest compressions resumed. 0824- 1 amp bicarb given, 1 mg epi given, PEA on pulse check. Chest compressions resumed. 0825- 1 amp calcium given 0827- 1 mg epi given, PEA on pulse check. Chest compressions resumed. 0830- 1 amp bicarb, 1 mg epi, PEA on pulse check. Chest compressions resumed. 0833- 1 mg epi given, PEA on pulse check. Chest compressions resumed. 0836- 1 mg epi given, SR with PVCs on pulse check. Awaiting epi drip from pharmacy. 0840- Pt sinus bradycardia, pulse present. 1 mg epinephrine given. Bradycardia resolved. 0844- 1 mg epi given. 0850- Epi drip started at 5 mcg/min 0852- Amiodarone drip started 0853- Epi drip increased to 10 mcg/min 0855- Epi drip increased to 15 mcg/min 0857- Epi drip increased to 20 mcg/min (Epi drip titrations due to BP and weakening pulse.) 0858- Dr Jeter at bedside. Orders given to start dopamine. 0900- Dopamine started at 0900 at 4 mcg/kg/min 0901- Dopamine increased to 30 mcg/kg/min per verbal order from Dr Jeter. 0904- Amiodarone drip stopped. BP 46/37. 0907- 1 mg epinephrine given. Pt still has pulse. 0909- 1 amp bicarb given 0913- Vasopressin started at 0.04 units/minute. Levophed started at 30 mcg/min per v/o from Dr Jeter. Provider at bedside to insert arterial line into axilla. 1st attempt successful. Dressed with tegaderm. OG tube inserted. CXR obtained. Placement reviewed with Dr Jeter and provider advanced OG tube further. OG tube allowed per Dr Robison. At this time, pt is SR per monitor, wide QRS. Some PVCs noted. BP low-normal.
--- NOTE | 2020-11-10 11:46 | NUR ---
PT Pt at 1042, first into PEA and then asystole. At time of arrest, pt on 20 mcg/min epinephrine, vasopressin 0.04 units/min, levophed 30 mcg/min, and dopamine 30 mcg/kg/min. Dr Jeter aware. At this time, pt was DNR, a decision made by the spouse when Dr Jeter called her after the first cardiac arrest. Pt's spouse updated. Belongings retrieved by people determined by spouse. Dr Nagy and Dr Robison notified. Dr Jeter at bedside. This RN extuabted patient after he and removed PICC and arterial line.
== END 2020-11-10 10:42 | DRG 208 ==
LOC: ER 19:34 → MEDS 22:49 → ICUE 22:49 → MEDS 10-29 00:13 → ICUE 10-30 18:20
PROVIDERS: Family Medicine; Internal Medicine; Internal Medicine Critical Care Medicine; Internal Medicine Pulmonary Disease; Physician Assistant; Student in an Organized Health Care Education/Training Program; ADMIT Internal Medicine
PROC: 3E0D73Z Introduction of Anti-inflammatory into Mouth and Pharynx, Via Natural or Artificial Opening (ICD-10-PCS; 2020-10-28)
PROC: 8E0ZXY6 Isolation (ICD-10-PCS; 2020-10-28)
PROC: 5A09557 Assistance with Respiratory Ventilation, Greater than 96 Consecutive Hours, Continuous Positive Airway Pressure (ICD-10-PCS; 2020-10-28)
PROC: 3E033XZ Introduction of Vasopressor into Peripheral Vein, Percutaneous Approach (ICD-10-PCS; 2020-10-28)
PROC: 0BH18EZ Insertion of Endotracheal Airway into Trachea, Via Natural or Artificial Opening Endoscopic (ICD-10-PCS; 2020-10-28)
PROC: XW033E5 Introduction of Remdesivir Anti-infective into Peripheral Vein, Percutaneous Approach, New Technology Group 5 (ICD-10-PCS; 2020-10-28)
PROC: 02HV33Z Insertion of Infusion Device into Superior Vena Cava, Percutaneous Approach (ICD-10-PCS; 2020-11-01)
PROC: 03HY32Z Insertion of Monitoring Device into Upper Artery, Percutaneous Approach (ICD-10-PCS; 2020-11-01)
PROC: 4A133B1 Monitoring of Arterial Pressure, Peripheral, Percutaneous Approach (ICD-10-PCS; 2020-11-01)
PROC: 4A133J1 Monitoring of Arterial Pulse, Peripheral, Percutaneous Approach (ICD-10-PCS; 2020-11-01)
PROC: 0DJ08ZZ Inspection of Upper Intestinal Tract, Via Natural or Artificial Opening Endoscopic (ICD-10-PCS; 2020-11-01)
PROC: 5A1935Z Respiratory Ventilation, Less than 24 Consecutive Hours (ICD-10-PCS; 2020-11-04)
PROC: 0BH17EZ Insertion of Endotracheal Airway into Trachea, Via Natural or Artificial Opening (ICD-10-PCS; 2020-11-04)
PROC: 5A12012 Performance of Cardiac Output, Single, Manual (ICD-10-PCS; principal; 2020-11-05)
DX: U07.1 COVID-19 (principal); J12.82 Pneumonia due to coronavirus disease 2019; J96.01 Acute respiratory failure with hypoxia; K22.11 Ulcer of esophagus with bleeding; G93.41 Metabolic encephalopathy; R40.20 Unspecified coma; N39.0 Urinary tract infection, site not specified; I47.2 Ventricular tachycardia; F05 Delirium due to known physiological condition; E78.5 Hyperlipidemia, unspecified; R57.8 Other shock; I46.2 Cardiac arrest due to underlying cardiac condition; J43.9 Emphysema, unspecified; I65.21 Occlusion and stenosis of right carotid artery; I25.10 Atherosclerotic heart disease of native coronary artery without angina pectoris; I10 Essential (primary) hypertension; R25.8 Other abnormal involuntary movements; F17.220 Nicotine dependence, chewing tobacco, uncomplicated; Z86.73 Personal history of transient ischemic attack (TIA), and cerebral infarction without residual deficits; Z90.49 Acquired absence of other specified parts of digestive tract; Z88.1 Allergy status to other antibiotic agents; Z88.5 Allergy status to narcotic agent; Z79.02 Long term (current) use of antithrombotics/antiplatelets; Z79.82 Long term (current) use of aspirin; Z79.899 Other long term (current) drug therapy; R15.9 Full incontinence of feces; R32 Unspecified urinary incontinence; F32.9 Major depressive disorder, single episode, unspecified; F41.9 Anxiety disorder, unspecified; B95.2 Enterococcus as the cause of diseases classified elsewhere; E83.39 Other disorders of phosphorus metabolism; R57.0 Cardiogenic shock; K44.9 Diaphragmatic hernia without obstruction or gangrene; K22.2 Esophageal obstruction
CPT/HCPCS: 31500; 36415; 36569; 36600; 36620; 51702; 70450; 71045; 71260; 80048; 80053; 80069; 80202; 81001; 81003; 82550; 82728; 82803; 83605; 83615; 83735; 83880; 84100; 84132; 84145; 84146; 84478; 84484; 85014; 85018; 85025; 85379; 85610; 86141; 87040; 87077; 87086; 87186; 93005; 93010; 94002; 94660; 94762; 95819; 96365-59; 96366; 97110; 97163; 99285-25; A9270; C1751; C9113; J0171; J0282; J0330; J0696; J1100; J1265; J1430; J1630; J1650; J1885; J1953; J2370; J2405; J2543; J2704; J3010; J3370; J7030; J7040; J7050; J7060; J7070; Q9967